=== PATIENT | male | born 1960 | race Caucasian/White ===

== ENCOUNTER → 2016-06-02 | Outpatient (CLI) | payer OTHER ==
--- NOTE | 2016-06-02 10:27 | XR ---
EXAMINATION TYPE: XR chest 2V DATE OF EXAM: 06/02/2016 10:14 AM COMPARISON: Prior x-ray September 18, 2015 HISTORY: Presurgical study. TECHNIQUE: Frontal and lateral views of the chest are obtained. FINDINGS: There is no focal air space opacity, pleural effusion, or pneumothorax seen. The cardiac silhouette size is within normal limits. Some ectasia or prominence of the aortic knob is stable. Brandy gical change in cervical spine with metallic disc spacer is noted new from prior. IMPRESSION: No acute cardiopulmonary process.
== END | disposition home or self-care (01) ==
LOC: RADXRMAIN 09:58
PROVIDERS: ATTEND Family Medicine
DX: Z01.818 Encounter for other preprocedural examination (principal)
CPT/HCPCS: 71020; 87070

== ENCOUNTER → 2016-06-11 | Outpatient (CLI) | payer OTHER ==
[2016-06-11 13:28] LABS: Basophils # (A) 0.1 k/uL (0-0.2); Basophils % (A) 1 %; CH 31.9; CHCM 33.3; Eosinophils # (A) 0.4 k/uL (0-0.7); Eosinophils % (A) 4 %; HCT 45.6 % (39.0-53.0); HDW 2.37; Luc # (Auto) 0.37; Luc % (Auto) 4; Lymphocytes # (A) 2.6 k/uL (1.0-4.8); Lymphocytes % (A) 25 %; MCH 31.7 pg (25.0-35.0); MCHC 32.9 g/dL (31.0-37.0); MCV 96.1 fL (80.0-100.0); Mean Platelet Volume 7.9; Monocytes # (A) 0.7 k/uL (0-1.0); Monocytes % (A) 7 %; Neutrophils # (A) 6.1 k/uL (1.3-7.7); Neutrophils % (A) 60 %; RBC 4.74 m/uL (4.30-5.90); RDW 13.2 % (11.5-15.5); WBC 10.3 k/uL (3.8-10.6); WBC (Perox) 10.84
== END | disposition home or self-care (01) ==
LOC: LABWHC1 12:55
PROVIDERS: ATTEND Surgery
DX: N39.0 Urinary tract infection, site not specified (principal)
CPT/HCPCS: 36415; 85025

== ENCOUNTER 2016-06-17 21:19 | Emergency (ER) | payer OTHER ==
[2016-06-17 21:43] VITALS: BP 128/77; PULSE 106; RESP 18; TEMP 99.3
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
== END 2016-06-17 22:32 | disposition home or self-care (01) ==
LOC: EC 21:19
DX: Z46.6 Encounter for fitting and adjustment of urinary device (principal); I10 Essential (primary) hypertension; E78.5 Hyperlipidemia, unspecified; E11.9 Type 2 diabetes mellitus without complications; F17.200 Nicotine dependence, unspecified, uncomplicated; Z79.899 Other long term (current) drug therapy; Z91.048 Other nonmedicinal substance allergy status; Z98.890 Other specified postprocedural states; Z79.84 Long term (current) use of oral hypoglycemic drugs; Z79.82 Long term (current) use of aspirin; Z88.8 Allergy status to other drugs, medicaments and biological substances; Z86.14 Personal history of Methicillin resistant Staphylococcus aureus infection
CPT/HCPCS: 99283

== ENCOUNTER 2016-09-01 05:53 | Inpatient (IN) | payer OTHER ==
[2016-09-01] MEDS ORDERED: SODIUM CHLORIDE 0.9% 500 ML IV STA ×2 (06:14→07:36)
[2016-09-01 06:40] LABS: Basophils # (A) 0.1 k/uL (0-0.2); Basophils % (A) 0 %; CH 32.2; CHCM 34.7; Eosinophils # (A) 0.5 k/uL (0-0.7); Eosinophils % (A) 3 %; HDW 2.42; HGB 13.5 gm/dL (13.0-17.5); Luc # (Auto) 0.31; Luc % (Auto) 2; Lymphocytes # (A) 1.7 k/uL (1.0-4.8); Lymphocytes % (A) 9 %; MCH 32.4 pg (25.0-35.0); MCHC 34.7 g/dL (31.0-37.0); MCV 93.2 fL (80.0-100.0); Mean Platelet Volume 6.9; Monocytes # (A) 0.8 k/uL (0-1.0); Monocytes % (A) 4 %; Neutrophils # (A) 15.5 k/uL (1.3-7.7); Neutrophils % (A) 82 %; RBC 4.18 m/uL (4.30-5.90); RDW 13.4 % (11.5-15.5); WBC 18.9 k/uL (3.8-10.6); WBC (Perox) 20.16
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
[2016-09-01 06:58] LABS: Anion Gap 11 mmol/L; Blood Urea Nitrogen 19 mg/dL (9-20); Calcium 9.1 mg/dL (8.4-10.2); Carbon Dioxide 20 mmol/L (22-30); Chloride 106 mmol/L (98-107); Glucose 195 mg/dL (74-99); Non-African American GFR(MDRD) >60 (>60 ml/min/1.73 sqM); Potassium 4.3 mmol/L (3.5-5.1); Sodium 137 mmol/L (137-145)
[2016-09-01] MEDS ORDERED: RX INFO: IV CONTRAST WAS GIVEN 1 EACH MISC MISCELLANE PRN (07:35)
--- NOTE | 2016-09-01 08:36 | CT ---
EXAMINATION TYPE: CT pelvis w con DATE OF EXAM: 09/01/2016 COMPARISON: NONE HISTORY: Rt sided gluteal abscess CT DLP: 1392.1 mGycm Automated exposure control for dose reduction was used. CONTRAST: Performed with IV Contrast, patient injected with 100 mL of Omnipaque 300. FINDINGS: Hypodensity within the right lobe the liver too small to characterize. Nonobstructing 3 mm right valarie l calculus. Extensive previous surgery involving the spinal column which results in artifact and dist ortion. Diverticulosis seen with no free fluid. Atherosclerotic change aorta. There is extensive edema in the region of the perineum. Soft tissue edema may been the basis of a ann lulitis. The perianal region there is a 1 cm area of ill-defined attenuation which could represent a small phlegmon. IMPRESSION: SOFT TISSUE EDEMA IN THE GLUTEAL REGION GREATER ON THE RIGHT AND WITHIN THE PERINEUM SUGGESTIVE OF A CELLULITIS. NO SIZABLE RIM-ENHANCING ABSCESS. HOWEVER, IN THE PERIANAL REGION ON THE RIGHT THERE IS A 1 CM AREA OF DIMINISHED ATTENUATION WHICH IS POORLY DEFINED WHICH MAY REPRESENT A SMALL PHLEGMON OR DEVELOPING TINY ABSCESS. NONOBSTRUCTING RIGHT RENAL CALCULUS MEASURING 4 MM..
[2016-09-01] MEDS ORDERED: NALOXONE 0.4 MG/ML 1 ML VIAL IV PRN (09:55)
[2016-09-01] MEDS ORDERED: IV VANCOMYCIN PER PHARMACY 1 EACH MISC MISCELLANE PRN (09:56)
[2016-09-01] MEDS: VANCOMYCIN 1,750 MG in SODIUM CHLORIDE 0.9% 250 ML IVPB STA ×2 (11:25→11:26)
[2016-09-01] MEDS: SODIUM CHLORIDE 0.9% 1,000 ML IV SCH ×2 (11:26→18:20)
[2016-09-01 11:42] VITALS: BMI 33.5
[2016-09-01] MEDS: AMPICILLIN-SULBACTAM 3 GM in SODIUM CHLORIDE 0.9% 100 ML IVPB SCH ×3 (14:32→23:21)
[2016-09-01] MEDS: LISINOPRIL 20 MG TAB PO SCH (16:36)
[2016-09-01] MEDS: LINAGLIPTIN 5 MG TABLET PO SCH (16:36)
[2016-09-01] MEDS: TAMSULOSIN 0.4 MG CAP.ER.24H PO SCH (16:37)
[2016-09-01] MEDS: PIOGLITAZONE 15 MG TAB PO SCH (16:37)
[2016-09-01] MEDS: MORPHINE SULFATE 4 MG/ML SYRINGE IV PRN (16:43)
[2016-09-01 17:20] LABS: Glucose,Whole Blood 148 mg/dL (75-99)
[2016-09-01] MEDS: HYDROcodone/APAP 7.5-325MG 1 EACH TAB PO PRN (20:23)
[2016-09-01] MEDS: ATORVASTATIN 20 MG TAB PO SCH (20:24)
[2016-09-01] MEDS: NAPROXEN 250 MG TAB PO SCH (20:24)
[2016-09-01] MEDS: metFORMIN 500 MG TAB PO SCH (20:25)
[2016-09-01] MEDS: VANCOMYCIN 1,750 MG in SODIUM CHLORIDE 0.9% 250 ML IVPB SCH (20:25)
[2016-09-01] MEDS: CYCLOBENZAPRINE 10 MG TAB PO SCH (20:25)
[2016-09-01] MEDS: glipiZIDE 10 MG TAB PO SCH (20:25)
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
[2016-09-01 20:54] LABS: Glucose,Whole Blood 137 mg/dL (75-99)
[2016-09-01] MEDS ORDERED: ACETAMINOPHEN TAB 325 MG TAB PO PRN (21:50)
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
[2016-09-02] MEDS: AMPICILLIN-SULBACTAM 3 GM in SODIUM CHLORIDE 0.9% 100 ML IVPB SCH ×3 (05:48→18:41)
[2016-09-02 07:44] LABS: Glucose,Whole Blood 108 mg/dL (75-99)
[2016-09-02 07:47] LABS: Basophils # (A) 0.1 k/uL (0-0.2); Basophils % (A) 1 %; CH 31.6; CHCM 33.1; Eosinophils # (A) 0.3 k/uL (0-0.7); Eosinophils % (A) 2 %; HCT 35.3 % (39.0-53.0); HDW 2.34; HGB 11.8 gm/dL (13.0-17.5); Luc # (Auto) 0.35; Luc % (Auto) 2; Lymphocytes # (A) 1.2 k/uL (1.0-4.8); Lymphocytes % (A) 7 %; MCH 32.2 pg (25.0-35.0); MCHC 33.5 g/dL (31.0-37.0); MCV 96.1 fL (80.0-100.0); Mean Platelet Volume 7.1; Monocytes # (A) 1.2 k/uL (0-1.0); Monocytes % (A) 7 %; Neutrophils # (A) 14.2 k/uL (1.3-7.7); Neutrophils % (A) 82 %; RBC 3.67 m/uL (4.30-5.90); RDW 13.7 % (11.5-15.5); WBC 17.3 k/uL (3.8-10.6); WBC (Perox) 17.51
[2016-09-02 08:07] LABS: Anion Gap 9 mmol/L; Blood Urea Nitrogen 13 mg/dL (9-20); Calcium 8.3 mg/dL (8.4-10.2); Carbon Dioxide 18 mmol/L (22-30); Chloride 111 mmol/L (98-107); Glucose 109 mg/dL (74-99); Non-African American GFR(MDRD) >60 (>60 ml/min/1.73 sqM); Potassium 4.4 mmol/L (3.5-5.1); Sodium 138 mmol/L (137-145)
[2016-09-02] MEDS: SODIUM CHLORIDE 0.9% 1,000 ML IV SCH ×3 (08:43→18:41)
[2016-09-02] MEDS: NAPROXEN 250 MG TAB PO SCH ×2 (10:13→21:08)
[2016-09-02] MEDS: VANCOMYCIN 1,750 MG in SODIUM CHLORIDE 0.9% 250 ML IVPB SCH ×2 (10:16→16:36)
--- NOTE | 2016-09-02 10:44 | P.HPADDEND ---
H&P Addendum H&P Addendum Date: 09/02/16 Patient presented with sepsis including fevers this morning secondary to cellulitis with buttock abscess. Recommend immediate drainage
[2016-09-02] MEDS ORDERED: PROPOFOL 10 MG/ML 20 ML VIAL IV ONE (12:02)
[2016-09-02] MEDS ORDERED: MORPHINE SULFATE 10 MG/ML SYRINGE ONE (12:02)
[2016-09-02] MEDS ORDERED: fentaNYL (PF) 50 MCG/ML 2 ML AMP ONE (12:02)
[2016-09-02] MEDS ORDERED: KETAMINE 10 MG/ML 20 ML VIAL ONE (12:02)
[2016-09-02] MEDS ORDERED: IV FLUID CONTINUATION 700 ML IV ONE (12:02)
[2016-09-02] MEDS ORDERED: LIDOCAINE 1% INJ 10MG/ML (20 ML MDV) ONE (12:02)
[2016-09-02] MEDS ORDERED: SUCCINYLCHOLINE CHLORIDE VIAL 200 MG/10 ML VIAL IV ONE (12:02)
[2016-09-02] MEDS ORDERED: MIDAZOLAM 2 MG/2 ML VIAL ONE (12:02)
[2016-09-02] MEDS ORDERED: HYDROmorphone (PF) 1 MG/ML ONE (12:02)
[2016-09-02] MEDS ORDERED: BUPIVACAIN-EPI 0.25%-1:200,000 30 ML VIAL SQ ONE (12:26)
--- NOTE | 2016-09-02 12:56 | P.PCN ---
Date of Procedure: 09/02/16 Preoperative Diagnosis: Sepsis due to complicated right buttock abscess, right buttock cellulitis, history of diabetes, morbid obesity Postoperative Diagnosis: Same, complicated right buttock/perineal abscess 10 x 5 cm the subcutaneous tissue Procedure(s) Performed: Excision of benign lesion 2 x 0.5 cm right buttock, drainage of complex deep subcutaneous tissue abscess of the right buttock/perineum 10 x 5 cm over 60 mL of pus drained Implants: Anesthesia: GETA, local (30 mL, percent Marcaine with epinephrine) Surgeon: Katie Kimbrough Estimated Blood Loss (ml): 10 Pathology: other (Anaerobic and aerobic culture of right buttock abscess, cellulitis lesion) Condition: stable Disposition: floor Indications for Procedure: Operative Findings: Over 60 mL of high pressure infected hematoma creating a 10 x 5 cm pocket extending along the medial right gluteal region/perineum. Description of Procedure:
[2016-09-02 13:02] LABS: Glucose,Whole Blood 127 mg/dL (75-99)
[2016-09-02] MEDS ORDERED: ACETAMINOPHEN IV (For NPO) 1,000 MG in EMPTY BAG 1 BAG IVPB ONE (13:30)
[2016-09-02] MEDS: PIOGLITAZONE 15 MG TAB PO SCH (14:08)
[2016-09-02] MEDS: TAMSULOSIN 0.4 MG CAP.ER.24H PO SCH (14:08)
[2016-09-02] MEDS: metFORMIN 500 MG TAB PO SCH ×2 (14:08→21:08)
[2016-09-02] MEDS: glipiZIDE 10 MG TAB PO SCH ×2 (14:08→21:08)
[2016-09-02] MEDS: LINAGLIPTIN 5 MG TABLET PO SCH (14:09)
[2016-09-02] MEDS: LISINOPRIL 20 MG TAB PO SCH (14:09)
[2016-09-02] MEDS: HEPARIN SODIUM,PORCINE 5,000 UNIT/ML 1 ML VIAL SQ SCH (16:36)
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
[2016-09-02 17:29] LABS: Glucose,Whole Blood 86 mg/dL (75-99)
[2016-09-02 17:29] LABS: Glucose,Whole Blood 61 mg/dL (75-99)
--- NOTE | 2016-09-02 19:13 | P.PN ---
Subjective Principal diagnosis: Sepsis due to right buttock cellulitis and abscess. The patient is a 56-year-old gentleman who is now status post drainage of a complex right buttock including perineal abscess. Over 50+ cc of infected malodorous purulence was evacuated. He is now bedside with his . He reports moderate improvement of his symptoms. His buttock pain is moderately improved. Infectious disease consultation is pending. Objective - Vital Signs Vital signs: Vital Signs Temp 97.1 F L 09/02/16 15:00 Pulse 94 09/02/16 15:29 Resp 18 09/02/16 15:29 BP 105/66 09/02/16 15:00 Pulse Ox 93 L 09/02/16 15:00 Intake & Output 09/01/16 09/02/16 09/02/16 18:59 06:59 18:59 Intake Total 200 1248 300 Output Total 20 Balance 200 1248 280 Weight 109 kg Intake: IV 1008 300 Sodium Chloride 0.9% 1, 1008 000 ml @ 126 mls/hr IV . Q7H57M [facility] Rx#:[id number] Oral 200 240 0 Output: Estimated Blood Loss 20 Other: # Voids 3 2 4 # Bowel Movements 2 - Exam GENERAL: Well developed and in no acute distress. Pleasant. HEENT: No sclera icterus. Extraocular movements grossly intact. Moist buccal mucosa. Head is atraumatic, normocephalic. Hears conversational speech. No nasal drainage. CHEST: Non-labored respirations and equal bilateral excursions. CARDIOVASCULAR: Tachycardic. Palpable 2+ radial pulses. ABDOMEN: Soft, nontender. Nondistended. MUSCULOSKELETAL: No clubbing, cyanosis or edema. NEUROLOGIC: No focal or lateralizing signs. SKIN: Dressing along right buttock intact. - Labs CBC & Chem 7: 09/02/16 07:15 09/02/16 07:15 Labs: Abnormal Lab Results - Last 24 Hours (Table) 09/01/16 09/01/16 09/02/16 Range/Units 17:19 20:53 07:15 WBC 17.3 H (3.8-10.6) k/uL RBC 3.67 L (4.30-5.90) m/uL Hgb 11.8 L (13.0-17.5) gm/dL Hct 35.3 L (39.0-53.0) % Neutrophils # 14.2 H (1.3-7.7) k/uL Monocytes # 1.2 H (0-1.0) k/uL Chloride (98-107) mmol/L Carbon Dioxide (22-30) mmol/L Glucose (74-99) mg/dL POC Glucose (mg/dL) 148 H 137 H (75-99) mg/dL Calcium (8.4-10.2) mg/dL 09/02/16 09/02/16 09/02/16 Range/Units 07:15 07:38 13:00 WBC (3.8-10.6) k/uL RBC (4.30-5.90) m/uL Hgb (13.0-17.5) gm/dL Hct (39.0-53.0) % Neutrophils # (1.3-7.7) k/uL Monocytes # (0-1.0) k/uL Chloride 111 H (98-107) mmol/L Carbon Dioxide 18 L (22-30) mmol/L Glucose 109 H (74-99) mg/dL POC Glucose (mg/dL) 108 H 127 H (75-99) mg/dL Calcium 8.3 L (8.4-10.2) mg/dL Microbiology - Last 24 Hours (Table) 09/01/16 06:27 Blood Culture - Preliminary Blood No Growth after 24 hours Assessment and Plan (1) Diabetes type 2, uncontrolled Status: Acute (2) Leukocytosis Status: Acute (3) History of MRSA infection Status: Acute (4) Perianal pain Status: Acute (5) Cellulitis, gluteal Status: Acute Plan: 1. Change dressings daily with iodoform packing. 2. Agree with infectious disease consultation. 3. Monitor close for history of sepsis. 4. Recommend referral to wound care center.
[2016-09-02 20:59] LABS: Glucose,Whole Blood 107 mg/dL (75-99)
[2016-09-02 21:04] LABS: Hemoglobin A1C 7.1 % (4.2-6.1)
[2016-09-02] MEDS: CYCLOBENZAPRINE 10 MG TAB PO SCH (21:08)
[2016-09-02] MEDS: ATORVASTATIN 20 MG TAB PO SCH (21:08)
[2016-09-02] MEDS: MORPHINE SULFATE 4 MG/ML SYRINGE IV PRN (21:09)
--- NOTE | 2016-09-02 22:04 | P.PN ---
Progress Note - Text DATE OF SERVICE: 09/02/2016 PRESENTING COMPLAINT: perianal pain INTERVAL HISTORY: This 56-year-old gentleman who presented with right perianal abscess. Patient is status post incision and drainage of the abscess 50 mL of purulence was retrieved. Lying in bed appears comfortable since procedure, states he can actually lie on his back now. Ambulatory in the room, was tolerating his diet prior to procedure. REVIEW OF SYSTEMS: Done for constitutional ,cardiovascular, GI, pulmonary with relevant findings as above. CURRENT MEDICATIONS Unasyn IV, [place], Lipitor, Flexeril, vancomycin IV, Flomax. PHYSICAL EXAM VITAL SIGNS: Temperature 98.4, pulse 97, respiratory rate 20, blood pressure 116/63, oxygen saturation 97% on room air GENERAL APPEARANCE: . Lying in bed, not in distress. EYES: Pupils equal. Conjunctiva normal. NECK: JVD not raised. Mass not palpable. RESPIRATORY: Respiratory effort normal. Lungs clear to auscultation. CARDIOVASCULAR: First and second sounds normal. No edema. ABDOMEN: Soft. Liver and spleen not palpable. No tenderness. No mass palpable. PSYCHIATRY: Alert and oriented x3. Mood and affect normal. INTEGUMENT: Right perianal area with dressing in place no drainage noted INVESTIGATIONS: White blood cell count 17.3, hemoglobin 11.8, Accu-Cheks noted. Buttock wound culture pending ASSESSMENT: Acute perianal abscess with surrounding cellulitis, failed outpatient treatment , status post incision and drainage, improving Obesity body mass index of 33.5. Type 2 diabetes mellitus on oral hypoglycemics. Hyperlipidemia. Essential Hypertension PLAN: Continue with current antibiotic treatment, await culture results, dressing changes per surgical services, possible discharge in 1-2 days. CAB STARTER statement: Patient was seen and examined by nurse practitioner Roma Lorenzana and all elements of the case discussed with attending Dr. King
[2016-09-02] MEDS: INSULIN LISPRO (humaLOG) 300 UNIT/3 ML VIAL SQ SCH (22:14)
[2016-09-03] MEDS: VANCOMYCIN 1,750 MG in SODIUM CHLORIDE 0.9% 250 ML IVPB SCH ×3 (00:19→16:34)
[2016-09-03] MEDS: HEPARIN SODIUM,PORCINE 5,000 UNIT/ML 1 ML VIAL SQ SCH ×5 (00:20→22:53)
[2016-09-03 02:05] LABS: Glucose,Whole Blood 120 mg/dL (75-99)
[2016-09-03] MEDS: AMPICILLIN-SULBACTAM 3 GM in SODIUM CHLORIDE 0.9% 100 ML IVPB SCH ×5 (02:32→22:53)
[2016-09-03] MEDS ORDERED: VANCOMYCIN TROUGH DUE 1 EACH MISC MISCELLANE ONE (07:00)
[2016-09-03 07:03] LABS: Glucose,Whole Blood 85 mg/dL (75-99)
[2016-09-03 07:35] VITALS: RESP 16
[2016-09-03] MEDS: INSULIN LISPRO (humaLOG) 300 UNIT/3 ML VIAL SQ SCH ×4 (07:46→20:46)
[2016-09-03] MEDS: glipiZIDE 10 MG TAB PO SCH ×2 (07:52→20:06)
[2016-09-03] MEDS: NAPROXEN 250 MG TAB PO SCH ×2 (07:53→20:05)
[2016-09-03] MEDS: LINAGLIPTIN 5 MG TABLET PO SCH (07:53)
[2016-09-03] MEDS: metFORMIN 500 MG TAB PO SCH ×2 (07:53→20:06)
[2016-09-03] MEDS: LISINOPRIL 20 MG TAB PO SCH (07:53)
[2016-09-03] MEDS: PIOGLITAZONE 15 MG TAB PO SCH (07:54)
[2016-09-03] MEDS: TAMSULOSIN 0.4 MG CAP.ER.24H PO SCH (07:54)
[2016-09-03] MEDS: MULTIVITAMINS, THERA 1 EACH TAB PO SCH (07:55)
--- NOTE | 2016-09-03 08:25 | PN ---
DATE OF SERVICE: 09/02/2016 ATTENDING NOTE: This patient was seen and examined by me earlier today. I reviewed the note of my nurse practitioner, Ms. Lorenzana. Reviewed and discussed additional findings below. Patient has a right perineal abscess, status post I&D about 50 mL drained. The patient feeling much relieved since then. Lying in bed, tired -appearing. On examination T-max was 101.1 last night, now afebrile. Blood pressure 105/66. RESPIRATORY: Effort normal. LUNGS: Clear. CARDIOVASCULAR: First and second sounds normal. Dressing in the buttock area. INVESTIGATIONS: Accu-Cheks are noted. White count 7.3, potassium 4.4. ASSESSMENT: 1. Acute perianal abscess and surrounding cellulitis, status post incision and drainage. 2. Type 2 diabetes mellitus. 3. Hyperlipidemia. 4. Hypoglycemia from poor oral intake and patient being n.p.o. for surgery. PLAN: Continue with IV vancomycin and Unasyn. Care was discussed with the patient. Hopefully sugars will come up after the patient eats. Care was discussed with the patient.
[2016-09-03] MEDS: SODIUM CHLORIDE 0.9% 1,000 ML IV SCH ×2 (09:09→16:33)
--- NOTE | 2016-09-03 10:11 | P.PN ---
Subjective 56-year-old male being seen and examined. Patient stated he passed gas and had a moderate amount of stool incontinence. Patient states when I need to have a bowel movement after the surgery it just comes out. Patients packing iodoform from the right buttocks stool noted on the packing. The packing was removed from the right buttocks the area cleaned and repacked the Patient is postop on September 02 right buttock perineal abscess incision and drainage with iodoform packing in place for sepsis due to a complicated right buttock abscess right buttock cellulitis in a patient who has a history of diabetes and obesity Objective - Vital Signs Vital signs: Vital Signs Temp 96.8 F L 09/03/16 07:00 Pulse 81 09/03/16 07:00 Resp 16 09/03/16 07:00 BP 102/73 09/03/16 07:00 Pulse Ox 97 09/03/16 07:00 Intake & Output 09/02/16 09/03/16 09/03/16 18:59 06:59 18:59 Intake Total 300 300 Output Total 20 2 Balance 280 298 Intake: IV 300 Intake, IV Titration 300 Amount Sodium Chloride 0.9% 1, 300 000 ml @ 50 mls/hr IV . Q20H [facility] Rx#:[id number] Oral 0 Output: Urine 2 Estimated Blood Loss 20 Other: Voiding Method Toilet # Voids 4 1 # Bowel Movements 2 - Exam Physical exam 56-year-old male seen and examined pleasant cooperative oriented 3 Lungs essentially clear adequate air movement on room air Heart S1-S2 audible and regular Abdomen soft nontender reports no nausea vomiting no difficulty in urinating passing gas incontinent small brown stool Peritoneal area right buttock incision and drainage area no odor noted packing removed Extremities no edema noted - Labs CBC & Chem 7: 09/02/16 07:15 09/02/16 07:15 Labs: Abnormal Lab Results - Last 24 Hours (Table) 09/02/16 09/02/16 09/02/16 Range/Units 07:15 13:00 17:10 POC Glucose (mg/dL) 127 H 61 L (75-99) mg/dL Hemoglobin A1c 7.1 H (4.2-6.1) % 09/02/16 09/03/16 Range/Units 20:48 02:02 POC Glucose (mg/dL) 107 H 120 H (75-99) mg/dL Hemoglobin A1c (4.2-6.1) % Microbiology - Last 24 Hours (Table) 09/01/16 06:27 Blood Culture - Preliminary Blood No Growth after 48 hours 09/02/16 12:45 Gram Stain - Preliminary Buttock Wound Culture - Preliminary 09/02/16 12:45 Anaerobic Culture - Preliminary Buttock Assessment and Plan Plan: Impression Present on admission febrile with leukocytosis sepsis due to complicated right buttock abscess right buttock cellulitis Status post September 02 incision and drainage of a complex deep subcutaneous tissue abscess of the right buttocks and perineum with 60 mL of pus drained Type 2 diabetes Hyperlipidemia Obesity BMI 33 Plan Wound care as ordered iodoform packing right buttock followed by 4 x 4 and ABD daily IV antibiotics Unasyn as ordered Monitor blood sugars address as indicated Pain control Shower daily Further recommendations pending Repeat labs in the morning DVT and GI prophylaxis The above dictated assessment and findings were discussed with DR KIMBROUGH Impression and the plan of care have been dictated as directed. Lyric Love nurse practitioner acting as a scribe for Dr. Kimbrough
[2016-09-03 11:23] LABS: Glucose,Whole Blood 119 mg/dL (75-99)
[2016-09-03] MEDS: CHOLESTYRAMINE (WITH SUGAR) 4 GM PACKET PO SCH (16:32)
[2016-09-03 16:48] LABS: Glucose,Whole Blood 95 mg/dL (75-99)
[2016-09-03] MEDS: ATORVASTATIN 20 MG TAB PO SCH (20:05)
[2016-09-03] MEDS: CYCLOBENZAPRINE 10 MG TAB PO SCH (20:06)
[2016-09-03 20:38] LABS: Glucose,Whole Blood 110 mg/dL (75-99)
--- NOTE | 2016-09-03 20:54 | P.PN ---
Progress Note - Text DATE OF SERVICE: 09/03/2016 PRESENTING COMPLAINT: perianal pain INTERVAL HISTORY: This 56-year-old gentleman who presented with right perianal abscess. Patient is status post incision and drainage of the abscess 50 mL of purulence was retrieved. Lying in bed appears comfortable,. Ambulatory in the room, was tolerating his diet. Openly refusing DVT prophylaxis of Lovenox, and insulin coverage. Patient stated "I don't take that stuff right take it right out of here". Wound care managed by surgical services. REVIEW OF SYSTEMS: Done for constitutional ,cardiovascular, GI, pulmonary with relevant findings as above. CURRENT MEDICATIONS Unasyn IV, [place], Lipitor, Flexeril, , vancomycin, Flomax. PHYSICAL EXAM VITAL SIGNS: Temperature 96.8, pulse 81, blood pressure 102/73, respiratory rate 16, oxygen saturation 97% on room air. GENERAL APPEARANCE: . Lying in bed, not in distress. EYES: Pupils equal. Conjunctiva normal. NECK: JVD not raised. Mass not palpable. RESPIRATORY: Respiratory effort normal. Lungs clear to auscultation. CARDIOVASCULAR: First and second sounds normal. No edema. ABDOMEN: Soft. Liver and spleen not palpable. No tenderness. No mass palpable. PSYCHIATRY: Alert and oriented x3. Mood and affect normal. INTEGUMENT: Right perianal area with dressing in place no drainage noted INVESTIGATIONS: Accu-Cheks noted. Buttock wound culture pending ASSESSMENT: Acute perianal abscess with surrounding cellulitis, failed outpatient treatment , status post incision and drainage, improving Obesity body mass index of 33.5. Type 2 diabetes mellitus on oral hypoglycemics. Hyperlipidemia. Essential Hypertension Hypoglycemia from poor oral intake and patient be nothing by mouth for surgery, resolved PLAN: Continue with current antibiotic treatment for infectious disease await culture results, dressing changes per surgical services, possible discharge in 1-2 days. CERTIFIED PROSTHETIST/ORTHOTIST statement: Patient was seen and examined by nurse practitioner Roma Lorenzana and all elements of the case discussed with attending Dr. King
[2016-09-03] MEDS: MORPHINE SULFATE 4 MG/ML SYRINGE IV PRN (22:50)
[2016-09-04] MEDS: VANCOMYCIN 1,750 MG in SODIUM CHLORIDE 0.9% 250 ML IVPB SCH ×3 (00:46→14:57)
[2016-09-04] MEDS: HYDROcodone/APAP 7.5-325MG 1 EACH TAB PO PRN ×3 (04:06→20:59)
[2016-09-04] MEDS: AMPICILLIN-SULBACTAM 3 GM in SODIUM CHLORIDE 0.9% 100 ML IVPB SCH ×3 (05:46→17:52)
[2016-09-04 07:13] LABS: Glucose,Whole Blood 93 mg/dL (75-99)
[2016-09-04] MEDS: LISINOPRIL 20 MG TAB PO SCH (07:20)
[2016-09-04] MEDS: metFORMIN 500 MG TAB PO SCH ×2 (07:20→20:50)
[2016-09-04] MEDS: glipiZIDE 10 MG TAB PO SCH ×2 (07:20→20:49)
[2016-09-04] MEDS: PIOGLITAZONE 15 MG TAB PO SCH (07:20)
[2016-09-04] MEDS: LINAGLIPTIN 5 MG TABLET PO SCH (07:20)
[2016-09-04] MEDS: TAMSULOSIN 0.4 MG CAP.ER.24H PO SCH (07:20)
[2016-09-04] MEDS: NAPROXEN 250 MG TAB PO SCH ×2 (07:20→20:50)
[2016-09-04] MEDS: INSULIN LISPRO (humaLOG) 300 UNIT/3 ML VIAL SQ SCH ×4 (07:31→20:45)
--- NOTE | 2016-09-04 07:53 | P.PN ---
Progress Note - Text Patient seen and evaluated. He reports moderate improvement of his buttock pain including blood sugars. Superficial dressing was discontinued per patient request. Overall he is pleased with the level of care. Antibiotic management per primary team and infectious disease. Recommend home health care evaluation and possible referral to wound care center.
[2016-09-04 08:10] LABS: Basophils # (A) 0.1 k/uL (0-0.2); Basophils % (A) 1 %; CH 31.7; CHCM 32.7; Eosinophils # (A) 0.5 k/uL (0-0.7); Eosinophils % (A) 6 %; HCT 34.1 % (39.0-53.0); HDW 2.43; HGB 11.3 gm/dL (13.0-17.5); Luc # (Auto) 0.31; Luc % (Auto) 4; Lymphocytes # (A) 1.8 k/uL (1.0-4.8); Lymphocytes % (A) 21 %; MCH 32.3 pg (25.0-35.0); MCHC 33.2 g/dL (31.0-37.0); MCV 97.4 fL (80.0-100.0); Mean Platelet Volume 7.4; Monocytes # (A) 0.7 k/uL (0-1.0); Monocytes % (A) 8 %; Neutrophils # (A) 5.4 k/uL (1.3-7.7); Neutrophils % (A) 61 %; RDW 13.5 % (11.5-15.5); WBC 8.8 k/uL (3.8-10.6); WBC (Perox) 9.07
[2016-09-04 08:25] LABS: Anion Gap 10 mmol/L; Blood Urea Nitrogen 13 mg/dL (9-20); Calcium 8.6 mg/dL (8.4-10.2); Carbon Dioxide 20 mmol/L (22-30); Chloride 112 mmol/L (98-107); Glucose 82 mg/dL (74-99); Non-African American GFR(MDRD) >60 (>60 ml/min/1.73 sqM); Potassium 4.4 mmol/L (3.5-5.1); Sodium 142 mmol/L (137-145)
--- NOTE | 2016-09-04 10:49 | PN ---
DATE OF SERVICE: 09/03/2016 ATTENDING NOTE: This patient was seen and examined by me on 09/03/2016. Patient is status post I&D of her right perianal abscess. Patient is more comfortable. Up in the room. Tolerating his diet. Patient does not want DVT prophylaxis. and also refused to take insulin coverage. I did explain to him why this is important. On examination, afebrile, pulse 107, blood pressure 105/66. RESPIRATORY: Effort normal. LUNGS: Decreased breath sounds. ABDOMEN: Soft, nontender. Dressing over the operative site. INVESTIGATIONS: Accu-Cheks monitored. Cultures are pending. ASSESSMENT: 1. Right perineal abscess with surrounding cellulitis, status post I&D having failed outpatient treatment. 2. Hyperglycemia, corrected. Continue with antibiotics. Follow with my colleagues. Discharge planning to be initiated.
--- NOTE | 2016-09-04 11:20 | P.PN ---
Subjective 56-year-old being seen and examined. Patient states is less pain in the right buttocks. Patient states his stools are forming less loose. Patient's hemoglobin A1c is 7.1 blood sugar this morning 93 Patient is postop September 02 ight buttock perineal abscess incision and drainage with iodoform packing in place for sepsis due to a complicated right buttock abscess right buttock cellulitis in a patient who has a history of diabetes and obesity Objective - Vital Signs Vital signs: Vital Signs Temp 97.2 F L 09/04/16 07:00 Pulse 69 09/04/16 07:47 Resp 16 09/04/16 07:47 BP 111/70 09/04/16 07:00 Pulse Ox 96 09/04/16 07:00 Intake & Output 09/03/16 09/04/16 09/04/16 18:59 06:59 18:59 Intake Total 1100 440 Output Total 1 Balance 1100 440 -1 Intake: Intake, IV Titration 650 200 Amount Ampicillin-Sulbactam 3 gm 100 In Sodium Chloride 0.9% 100 ml @ 100 mls/hr IVPB Q6HR JS Rx#:[id number] Sodium Chloride 0.9% 1, 300 200 000 ml @ 50 mls/hr IV . Q20H JS Rx#:[id number] Vancomycin 1,750 mg In 250 Sodium Chloride 0.9% 250 ml @ 125 mls/hr IVPB Q8HR JS Rx#:[id number] Oral 450 240 Output: Urine 1 Other: Voiding Method Toilet Toilet Toilet # Voids 3 2 1 # Bowel Movements 4 - Exam Physical exam 56-year-old male seen and examined pleasant cooperative oriented 3 sitting up in bed patient states I am not interested in starting insulin would like to keep my oral pills Lungs essentially clear adequate air movement on room air Heart S1-S2 audible and regular denying chest pain Abdomen soft nontender reports no nausea vomiting no difficulty in urinating states less loose stools this morning Peritoneal area right buttock incision and drainage area no odor noted packing removed Extremities no edema noted - Labs CBC & Chem 7: 09/04/16 07:05 09/04/16 07:05 Labs: Abnormal Lab Results - Last 24 Hours (Table) 09/03/16 09/03/16 09/04/16 Range/Units 11:21 20:36 07:05 RBC 3.50 L (4.30-5.90) m/uL Hgb 11.3 L (13.0-17.5) gm/dL Hct 34.1 L (39.0-53.0) % Chloride (98-107) mmol/L Carbon Dioxide (22-30) mmol/L POC Glucose (mg/dL) 119 H 110 H (75-99) mg/dL 09/04/16 Range/Units 07:05 RBC (4.30-5.90) m/uL Hgb (13.0-17.5) gm/dL Hct (39.0-53.0) % Chloride 112 H (98-107) mmol/L Carbon Dioxide 20 L (22-30) mmol/L POC Glucose (mg/dL) (75-99) mg/dL Microbiology - Last 24 Hours (Table) 09/01/16 06:27 Blood Culture - Preliminary Blood No Growth after 72 hours 09/02/16 12:45 Gram Stain - Preliminary Buttock Wound Culture - Preliminary Assessment and Plan Plan: Impression Present on admission febrile with leukocytosis sepsis due to complicated right buttock abscess right buttock cellulitis Status post September 02 incision and drainage of a complex deep subcutaneous tissue abscess of the right buttocks and perineum with 60 mL of pus drained Type 2 diabetes Hyperlipidemia Obesity BMI 33 Plan Wound care as ordered iodoform packing right buttock followed by 4 x 4 and ABD daily IV antibiotics Unasyn as ordered per infectious disease Monitor blood sugars address as indicated Pain control Shower daily Further recommendations pending Repeat labs in the morning DVT and GI prophylaxis Follow-up on the wound cultures Patient will follow-up in the outpatient setting at the [facility] wound care [place] with Dr. hampton The above dictated assessment and findings were discussed with DR KIMBROUGH Impression and the plan of care have been dictated as directed. Lyric Love nurse practitioner acting as a scribe for Dr. Kimbrough
[2016-09-04] MEDS: SODIUM CHLORIDE 0.9% 1,000 ML IV SCH ×2 (11:50→14:57)
[2016-09-04] MEDS: CHOLESTYRAMINE (WITH SUGAR) 4 GM PACKET PO SCH ×2 (11:50→18:07)
[2016-09-04] MEDS: MULTIVITAMINS, THERA 1 EACH TAB PO SCH (11:51)
[2016-09-04 12:10] LABS: Glucose,Whole Blood 101 mg/dL (75-99)
[2016-09-04] MEDS: HEPARIN SODIUM,PORCINE 5,000 UNIT/ML 1 ML VIAL SQ SCH (15:04)
[2016-09-04 15:27] VITALS: BP 120/63; PULSE 68; TEMP 97.7
[2016-09-04 17:21] LABS: Glucose,Whole Blood 98 mg/dL (75-99)
--- NOTE | 2016-09-04 18:00 | P.PN ---
Progress Note - Text DATE OF SERVICE: 09/04/2016 PRESENTING COMPLAINT: Perianal pain INTERVAL HISTORY: This 56-year-old gentleman who presented with right perianal abscess. Patient is status post incision and drainage of the abscess 50 mL of purulence was retrieved. Lying in bed appears comfortable,. Ambulatory in the room, was tolerating his diet. In seemingly good spirits, states the pain is much improved, tolerating his diet, states he has a hard time keeping the packing in the dressing, and as such surgery has discontinued the superficial dressing at his request. Moving his bowels. IV antibiotics of vancomycin and Zosyn continue. Awaiting culture results. Discharge planning is underway. REVIEW OF SYSTEMS: Done for constitutional ,cardiovascular, GI, pulmonary with relevant findings as above. CURRENT MEDICATIONS Unasyn IV, Empire, Lipitor, Flexeril, , vancomycin, Flomax. PHYSICAL EXAM VITAL SIGNS: Temperature 96.8, pulse 81, blood pressure 102/73, respiratory rate 16, oxygen saturation 97% on room air. GENERAL APPEARANCE: . Lying in bed, not in distress. EYES: Pupils equal. Conjunctiva normal. NECK: JVD not raised. Mass not palpable. RESPIRATORY: Respiratory effort normal. Lungs clear to auscultation. CARDIOVASCULAR: First and second sounds normal. No edema. ABDOMEN: Soft. Liver and spleen not palpable. No tenderness. No mass palpable. PSYCHIATRY: Alert and oriented x3. Mood and affect normal. INTEGUMENT: Right perianal area with dressing in place no drainage noted INVESTIGATIONS: White blood cell count 8.8, hemoglobin 11.3, all other labs unremarkable. Accu- Cheks noted within normal limits. Buttock wound cultures pending. Awaiting sensitivities ASSESSMENT: Acute right perianal abscess with surrounding cellulitis, failed outpatient treatment, status post incision and drainage, improving Obesity body mass index of 33.5. Type 2 diabetes mellitus on oral hypoglycemics. Hyperlipidemia. Essential Hypertension Hypoglycemia from poor oral intake and patient be nothing by mouth for surgery, resolved PLAN: Continue with current antibiotic treatment per infectious disease await culture results, dressing changes per surgical services, possible discharge in 1-2 days. Discharge plan will include wound care center follow-up, possibly IV antibiotics and home care to assist with dressing the wound. We'll follow closely. RN FIELD CASE MANAGER statement: Patient was seen and examined by nurse practitioner Roma Lorenzana and all elements of the case discussed with attending Dr. King
[2016-09-04 20:38] LABS: Glucose,Whole Blood 109 mg/dL (75-99)
[2016-09-04] MEDS: ATORVASTATIN 20 MG TAB PO SCH (20:49)
[2016-09-04] MEDS: CYCLOBENZAPRINE 10 MG TAB PO SCH (20:49)
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
--- NOTE | 2016-09-04 23:32 | P.DS ---
Providers Date of admission: 09/01/16 09:55 Expected date of discharge: 09/04/16 Attending physician: Freddy King Consults: 09/01/16 09:55 Consult Physician Urgent Consulting Provider: Katie Kimbrough Consult Reason/Comments: Gluteal cellulitis Do you want consulting provider notified?: Yes 09/01/16 14:53 Consult Physician Routine Consulting Provider: Jay Streeter Consult Reason/Comments: perianal abscess Do you want consulting provider notified?: Yes Primary care physician: Ifeanyi [facility] Course: FINAL DIAGNOSES: Acute right perianal abscess with surrounding cellulitis, failed outpatient treatment, status post incision and drainage improving. Obesity body mass index of 33.5. Type 2 diabetes mellitus on oral hypoglycemics. Hyperlipidemia. Essential hypertension. Hypoglycemia from poor oral intake and patient being nothing by mouth for surgery, resolved HOSPTIAL COURSE: This a 56-year-old patient who was admitted with fevers chills and pain to the perianal area. Computed tomography scan suggestive of small localized abscess. IV fluids, Unasyn and IV vancomycin initiated for leukocytosis with a white blood cell count of 18,000. Infectious disease and surgery was consulted. Sitz bath for perianal pain and swelling. Was taken on September 02 for right buttock perineal abscess incision and drainage, iodoform gauze packing in place. 50 ML's of purulence was extracted and sent for culture. Patient responded well to antibiotic therapy, dressing changes per surgical services. Cultures negative and no evidence of MRSA per ID recommendations antibiotic therapy will transition to Augmentin. Patient's tolerating his diet, ambulatory within the room and in the halls. Moving his bowels, patient would very much like to go home. PHYSICAL EXAM: CARDIOVASCULAR: First and second sounds noted no edema. RESPIRATORY: Respiratory effort normal, lungs diminished bilaterally to the bases. GI: Abdomen soft nontender liver and spleen not palpable INTEGUMENT: Wound is approximately 10 x 8 cm in size, packed with iodoform gauze , covered with foam dressing. Patient was seen and examined by nurse practitioner Roma Lorenzana in all elements of the case discussed with attending Dr. King DISOPSITION: Home with home care and to the care of his family. Pertinent Studies: Computed tomography scan of pelvis with contrast: Soft tissue edema in the gluteal region on the right within perineum suggestive of cellulitis. Perianal region on the right there is a 1 cm area of diminished attenuation which is poorly defined which may represent a small phlegmon or developing tiny abscess Right Buttock Wound culture No growth after 48 hours. Patient Condition at Discharge: Stable Plan - Discharge Summary New Discharge Prescriptions: New Amoxic-Pot Clav 875-125Mg [Augmentin 875-125] 1 tab PO Q12HR #14 tablet Continue Lisinopril 40 mg PO DAILY Atorvastatin Calcium [Lipitor] 20 mg PO HS sitaGLIPtin [Januvia] 100 mg PO DAILY metFORMIN HCL 1,000 mg PO BID glipiZIDE [Glucotrol] 10 mg PO BID Cyclobenzaprine [Flexeril] 10 mg PO HS HYDROcodone/APAP 7.5-325MG [Glenelg 7.5-325] 1 tab PO Q6HR PRN PRN Reason: Pain Tamsulosin HCl [Flomax] 0.4 mg PO DAILY Loratadine [Claritin] 10 mg PO DAILY Pioglitazone [Actos] 15 mg PO DAILY [id number]-Lgll [id number] [Excedrin] 1 tab PO Q4HR PRN PRN Reason: Pain Discharge Medication List Atorvastatin Calcium [Lipitor] 20 mg PO HS 10/20/14 [History] Lisinopril 40 mg PO DAILY 10/20/14 [History] glipiZIDE [Glucotrol] 10 mg PO BID 10/20/14 [History] metFORMIN HCL 1,000 mg PO BID 10/20/14 [History] sitaGLIPtin [Januvia] 100 mg PO DAILY 10/20/14 [History] Cyclobenzaprine [Flexeril] 10 mg PO HS 09/18/15 [History] HYDROcodone/APAP 7.5-325MG [Glenelg 7.5-325] 1 tab PO Q6HR PRN 09/18/15 [History] Loratadine [Claritin] 10 mg PO DAILY 09/21/15 [History] Tamsulosin HCl [Flomax] 0.4 mg PO DAILY 09/21/15 [History] [id number]-Cvqy-Wbbh [id number] [Excedrin] 1 tab PO Q4HR PRN 09/01/16 [History] Pioglitazone [Actos] 15 mg PO DAILY 09/01/16 [History] Amoxic-Pot Clav 875-125Mg [Augmentin 875-125] 1 tab PO Q12HR #14 tablet [Rx] Follow up Appointment(s)/Referral(s): Katie Kimbrough MD [STAFF PHYSICIAN] - 1 Week Ifeanyi Davis DO [Primary Care Provider] - 1-2 days [facility] Visiting Nurse, [NON-STAFF] - 1 Week Activity/Diet/Wound Care/Special Instructions: set up for [facility] with Dr. Coy appointment within 1 week Discharge Disposition: HOME WITH HOME HEALTH SERVICES
[2016-09-05] MEDS ORDERED: VANCOMYCIN TROUGH DUE 1 EACH MISC MISCELLANE ONE (07:00)
--- NOTE | 2016-09-07 12:16 | DS ---
DATE OF ADMISSION: 09/01/2016 DATE OF DISCHARGE: 09/04/2016 ATTENDING NOTE: This patient was seen and examined by me on 09/05/2016. Reviewed the discharge summary of my nurse practitioner, Ms. Lorenzana. Discussed additional findings as below. Patient was admitted with right perianal abscess that was drained rather significant amount questionable nonspecific. Antibiotics according to Dr. Streeter. Doing much better at the time of discharge. He is being discharged on Augmentin. On examination, lungs are clear. CARDIOVASCULAR: First and second sounds normal. CONSULTATIONS: Dr. Kimbrough from general surgery, Dr. Streeter from infectious disease. More details in the discharge note.
--- NOTE | 2016-09-17 14:40 | P.OP ---
Date of Procedure: 09/02/16 Preoperative Diagnosis: Postoperative Diagnosis: Procedure(s) Performed: Implants: Indications for Procedure: Operative Findings: Description of Procedure: SURGEON: JIMENEZ TOMPKINS MD AIRPLANE ENGINEER: None. PREOPERATIVE DIAGNOSES: 1. Sepsis due to complicated right buttock abscess 2. Right buttock cellulitis 3. Diabetes type 2, [id number], poorly controlled. 4. Obesity, BMI 33.5. 5. Essential hypertension. 6. Hyperlipidemia. 7. Personal history of methicillin-resistant staph aureus. 8. Previous history of multiple wound ulcers. 9. Gastroesophageal reflux disease. 10. Failed outpatient antibiotic therapy. POSTOPERATIVE DIAGNOSES: 1. Sepsis due to complicated right buttock abscess 2. Right buttock cellulitis 3. Diabetes type 2, [id number], poorly controlled. 4. Obesity, BMI 33.5. 5. Essential hypertension. 6. Hyperlipidemia. 7. Personal history of methicillin-resistant staph aureus. 8. Previous history of multiple wound ulcers. 9. Gastroesophageal reflux disease. 10. Failed outpatient antibiotic therapy. 11. Complicated right buttock/perineal abscess 10 x 5 cm of the deep subcutaneous tissue. 12. Infected hematoma. PROCEDURES PERFORMED: 1. Excision of soft tissue benign lesion 2 cm x 0.5 cm right buttock. 2. Open drainage of complicated complex deep subcutaneous tissue infected hematoma with abscess of the right buttock/perineum 10 x 5 cm with over 60 mL of pus drained. 3. Mechanical debridement with 3 L warm normal saline of 10 x 5 cm. ANESTHESIA: General and local. ESTIMATED BLOOD LOSS: 10 mL. SPECIMENS REMOVED: 1. Soft tissue excision. 2. Aerobic and anaerobic culture of abscess COMPLICATIONS: None. INDICATIONS: The patient is a 56-year-old male who presents with failed outpatient management of right buttock cellulitis. He presented with fevers chills including sepsis. Despite broad-spectrum antibiotics, he continued to have fevers and worsening leukocytosis. Prompt surgical intervention was described. Benefits and risks of immediate drainage was reviewed including bleeding, infection, cosmetic deformity, need for further surgery, for which informed consent was obtained. DESCRIPTION OF PROCEDURE: The patient was brought to the operating room, laid in supine position. After general induction, the patient was repositioned to the prone jackknife position with the buttocks spread apart. The lower back and buttocks were prepped and draped in standard sterile fashion using Betadine. Prior to incision, a timeout protocol was confirmed with surgical team regarding patient's name, procedure to be performed, including preoperative medications for which he had received vancomycin. Large fluctuance palpated at the gluteal fold of the right buttock off the midline. A transverse excision of 2 cm x 0.5 cm was made after localizing the skin. Incision was deepened into subcutaneous tissue were immediately over 60 mL of judd purulent infected hematoma was aspirated and under high pressure. Aerobic and anaerobic cultures were obtained. Along the bed of the wound the fascia was identified. Loculations were disrupted using digital palpation. Bleeding was controlled with electro-Bovie cautery. Next, a total of 3 L of warm normal saline solution pulse lavage was used for mechanical debridement along the entire pocket of the wound. Next, the pocket was widely packed using 12 inches of 1-inch iodoform packing. The skin was cleansed. Next 4 x 4's followed by ABDs were placed and taped to the skin. The patient was awoken from anesthesia and transferred to the postanesthesia care in stable condition. Please note that the instrument, sponge, and needle count was verified correct by surgical resident. Intraoperative findings were described to the patient's family who were pleased with level of care. FINDINGS: 1. Over 60 mL of high pressure infected hematoma creating a 10 x 5 cm pocket extending along the medial right gluteal region/perineum involving the deep subcutaneous tissue.
== END 2016-09-04 23:00 | disposition home health service (06) | DRG 854 ==
LOC: EC 05:53 → 5MS5E 09:55
PROVIDERS: ADMIT Hospitalist; ATTEND Hospitalist
PROC: 0JB90ZZ Excision of Buttock Subcutaneous Tissue and Fascia, Open Approach (ICD-10-PCS; 2016-09-02)
PROC: 0J990ZX Drainage of Buttock Subcutaneous Tissue and Fascia, Open Approach, Diagnostic (ICD-10-PCS; 2016-09-02)
PROC: 0JD90ZZ Extraction of Buttock Subcutaneous Tissue and Fascia, Open Approach (ICD-10-PCS; principal; 2016-09-02 12:00)
DX: A41.9 Sepsis, unspecified organism (principal); K61.0 Anal abscess; E11.649 Type 2 diabetes mellitus with hypoglycemia without coma; L02.215 Cutaneous abscess of perineum; L02.31 Cutaneous abscess of buttock; L03.317 Cellulitis of buttock; E11.65 Type 2 diabetes mellitus with hyperglycemia; I10 Essential (primary) hypertension; E66.01 Morbid (severe) obesity due to excess calories; Z68.33 Body mass index [BMI] 33.0-33.9, adult; E78.5 Hyperlipidemia, unspecified; K21.9 Gastro-esophageal reflux disease without esophagitis; F12.90 Cannabis use, unspecified, uncomplicated; G89.29 Other chronic pain; M54.9 Dorsalgia, unspecified; Z86.14 Personal history of Methicillin resistant Staphylococcus aureus infection; F17.210 Nicotine dependence, cigarettes, uncomplicated; Z90.49 Acquired absence of other specified parts of digestive tract; Z79.82 Long term (current) use of aspirin; Z79.84 Long term (current) use of oral hypoglycemic drugs; Z79.899 Other long term (current) drug therapy
CPT/HCPCS: 36415; 72193; 80048; 80202; 83036; 83605; 85025; 87040; 87070; 87075; 87205; 88304; 88305; 94760; 96361; 96365; 96366; 99285

== ENCOUNTER → 2016-10-26 | Outpatient (CLI) | payer OTHER ==
[2016-10-26 11:16] LABS: Blood Urea Nitrogen 14 mg/dL (9-20); Non-African American GFR(MDRD) >60 (>60 ml/min/1.73 sqM)
--- NOTE | 2016-10-26 12:50 | CT ---
EXAMINATION TYPE: CT angio chest DATE OF EXAM: 10/26/2016 COMPARISON: 11/02/2015 HISTORY: 56-year-old male aneurysm of descending thoracic aorta TECHNIQUE: Contiguous axial scanning of the chest performed without and with IV Contrast, patient inj ected with 100 ml mL of Omnipaque 350. Coronal/sagittal MIP reconstructions performed. 3-D reconstruc tions generated on a dedicated independent workstation. CT DLP: 999 mGycm Automated exposure control for dose reduction was used. FINDINGS: The heart is normal size without pericardial effusion. The ascending aorta is ectatic at 3.7 cm, not significantly changed from prior exam. There is aberrant right subclavian artery which takes a retroesophageal course. Mild atherosclerotic arch calcifications. The distal arch is aneurysmal at 3.6 cm, not significantly changed. The remainder of the descending thoracic aorta is normal caliber. No evidence for aortic dissection are acute intramural hematoma when referring to the noncontrast ser ies. Scattered nonenlarged mediastinal lymph nodes are present. Evaluation of the lungs shows mild dependent atelectasis. There is centrilobular emphysema in the upp er lungs. No consolidation or pleural effusion. There is a 2.3 cm round fat containing lesion in the right adrenal gland stable from prior. Moderate multilevel disc/endplate degenerative change, relatively severe at L1-L2 as seen previously. IMPRESSION: 1. STABLE ANEURYSM OF THE DISTAL AORTIC ARCH AT 3.6 CM. THE ASCENDING AORTA REMAINS ECTATIC AT 3.7 CM . 2. ABERRANT RIGHT SUBCLAVIAN ARTERY. 3. COPD WITH MILD TO MODERATE EMPHYSEMA. 4. STABLE 2.3 CM FAT-CONTAINING RIGHT ADRENAL GLAND LESION COMPATIBLE WITH A MYELOLIPOMA.
== END | disposition home or self-care (01) ==
LOC: RADCTMAIN 10:33
PROVIDERS: ATTEND Thoracic Surgery (Cardiothoracic Vascular Surgery)
DX: I71.2 Thoracic aortic aneurysm, without rupture (principal); Q27.8 Other specified congenital malformations of peripheral vascular system; J43.9 Emphysema, unspecified; E27.8 Other specified disorders of adrenal gland
CPT/HCPCS: 82565; 84520; 71275; 36415; Q9967

== ENCOUNTER → 2016-11-01 | Outpatient (CLI) | payer OTHER ==
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
== END | disposition home or self-care (01) ==
LOC: RADMRIMAIN 07:06
PROVIDERS: ATTEND Neurological Surgery
DX: M48.06 Spinal stenosis, lumbar region (principal); M51.36 Other intervertebral disc degeneration, lumbar region; M48.04 Spinal stenosis, thoracic region; M51.24 Other intervertebral disc displacement, thoracic region; M51.34 Other intervertebral disc degeneration, thoracic region; Z98.1 Arthrodesis status
CPT/HCPCS: 72146; 72158; A9577

== ENCOUNTER → 2017-05-24 | Outpatient (CLI) | payer OTHER ==
--- NOTE | 2017-05-24 10:48 | XR ---
EXAMINATION TYPE: XR chest 2V DATE OF EXAM: 05/24/2017 COMPARISON: 06/02/2016 HISTORY: Crackles on examination with shortness of breath. TECHNIQUE: Frontal and lateral views of the chest are obtained. FINDINGS: There is no focal air space opacity, pleural effusion, or pneumothorax seen. The cardiac silhouette size is within normal limits. The osseous structures are intact. Prominence of the upper mediastinum, unchanged from the prior, relates to an apparent right subclavian artery. Partial visua lization of cervical postsurgical changes. IMPRESSION: No acute cardiopulmonary process. No evidence of focal consolidation or pulmonary edema.
== END ==
LOC: RADXRMAIN 10:11
PROVIDERS: ATTEND Family Medicine
DX: R09.89 Other specified symptoms and signs involving the circulatory and respiratory systems (principal)
CPT/HCPCS: 71046

== ENCOUNTER → 2017-10-31 | Outpatient (CLI) | payer OTHER ==
--- NOTE | 2017-10-31 13:51 | XR ---
EXAMINATION TYPE: XR chest 2V DATE OF EXAM: 10/31/2017 COMPARISON: 05/24/2017 HISTORY: Presurgical clearance. Chest pain. TECHNIQUE: Frontal and lateral views of the chest are obtained. FINDINGS: There is no focal air space opacity, pleural effusion, or pneumothorax seen. The cardiac silhouette size is upper limits of normal. The osseous structures are intact. IMPRESSION: No acute cardiopulmonary process.
== END | disposition home or self-care (01) ==
LOC: RADXRMAIN 13:28
PROVIDERS: ATTEND Family Medicine
DX: K27.9 Peptic ulcer, site unspecified, unspecified as acute or chronic, without hemorrhage or perforation (principal)
CPT/HCPCS: 71046

== ENCOUNTER → 2018-01-13 | Outpatient (CLI) | payer OTHER ==
--- NOTE | 2018-01-13 10:30 | XR ---
EXAMINATION TYPE: XR cervical spine w flex/ext DATE OF EXAM: 01/13/2018 TECHNIQUE: Frontal, lateral, oblique, swimmers, and open mouth view of the cervical spine are obtaine d. Flexion and extension views are also obtained. HISTORY: M50.922 cervical disc disorder COMPARISON: 02/11/2016 FINDINGS: At C4-5 there is stable left intervertebral prosthesis noted. There is instability noted at this leve l with grade 1 anterolisthesis at neutral measuring 4.3 mm which reduces upon extension and increases slightly to 4.6 mm at flexion. Intervertebral body disc prosthesis has been placed in the interval at C5-6 and C6-7. Alignment is st able at neutral, flexion and extension. Remaining cervical levels are within normal limits. IMPRESSION: 1. Postoperative changes as discussed. 2. At C4-5 there is stable left intervertebral prosthesis noted. There is instability noted at this l evel with grade 1 anterolisthesis at neutral measuring 4.3 mm which reduces upon extension and increa ses slightly to 4.6 mm at flexion.
== END | disposition home or self-care (01) ==
LOC: RADXRMAIN 10:01
PROVIDERS: ATTEND Neurological Surgery
DX: M43.12 Spondylolisthesis, cervical region (principal); Z98.890 Other specified postprocedural states
CPT/HCPCS: 72052

== ENCOUNTER → 2018-05-06 | Outpatient (CLI) | payer OTHER ==
--- NOTE | 2018-05-07 11:36 | ECHOF ---
Referral Reason:Z01.818 preprocedural examination MEASUREMENTS -------- HEIGHT: 182.9 cm WEIGHT: 117.9 kg BP: RVIDd: 2.8 cm (< 3.3) IVSd: 1.3 cm (0.6 - 1.1) LVIDd: 5.0 cm (3.9 - 5.3) LVPWd: 1.1 cm (0.6 - 1.1) IVSs: 1.7 cm LVIDs: 3.4 cm LVPWs: 1.1 cm LA Diam: 3.9 cm (2.7 - 3.8) Ao Diam: 3.9 cm (2.0 - 3.7) AV Cusp: 1.5 cm (1.5 - 2.6) LA Diam: 3.7 cm (2.7 - 3.8) MV EXCURSION: 13.275 mm (> 18.000) MV EF SLOPE: 70 mm/s (70 - 150) EPSS: 1.1 cm MV E Rajesh: 0.58 m/s MV DecT: 176 ms MV A Rajesh: 0.64 m/s MV E/A Ratio: 0.90 RAP: 5.00 mmHg RVSP: 16.46 mmHg FINDINGS -------- Sinus rhythm. This was a technically adequate study. The left ventricular size is normal. There is mild concentric left ventricular hypertrophy. Overa ll left ventricular systolic function is low-normal with, an EF between 50 - 55 %. The right ventricle is normal in size. The left atrial size is normal. The right atrial size is normal. The aortic valve is trileaflet, and appears structurally normal. No aortic stenosis or regurgitation. Mild mitral annular calcification present. Mild mitral regurgitation is present. Mild tricuspid regurgitation present. There is no evidence of pulmonary hypertension. The right v entricular systolic pressure, as measured by Doppler, is 16.46mmHg. There is no pulmonic regurgitation present. The aortic root size is normal. Echo free space represents a pericardial fat pad. CONCLUSIONS -------- 1. The left ventricular size is normal. 2. There is mild concentric left ventricular hypertrophy. 3. Overall left ventricular systolic function is low-normal with, an EF between 50 - 55 %. 4. The right atrial size is normal. 5. The aortic valve is trileaflet, and appears structurally normal. No aortic stenosis or regurgitati on. 6. Mild mitral annular calcification present. 7. Mild mitral regurgitation is present. 8. Mild tricuspid regurgitation present. 9. There is no evidence of pulmonary hypertension. 10. The right ventricular systolic pressure, as measured by Doppler, is 16.46mmHg. 11. There is no pulmonic regurgitation present. 12. The aortic root size is normal. 13. Echo free space represents a pericardial fat pad. REGISTERED DENTAL ASSISTANT RDA: Hannah Ruby RDCS
== END ==
LOC: RADECHMAIN 13:52
PROVIDERS: ATTEND Family Medicine
DX: Z01.818 Encounter for other preprocedural examination (principal); I08.1 Rheumatic disorders of both mitral and tricuspid valves
CPT/HCPCS: 93306

== ENCOUNTER → 2018-09-10 | Outpatient (CLI) | payer OTHER ==
--- NOTE | 2018-09-17 16:08 | P.ARTDOP ---
Arterial Doppler LOWER EXTREMITY ARTERIAL DOPPLER: DATE OF SERVICE: 09/10/2018 Reason for study: Decreased pulses. Doppler waveforms: Multiphasic bilaterally throughout. Pulse volume recording: []. Pressure gradients: None. Ankle-brachial indices: Greater than 1 on the left and 0.99 on the right. Toe pressures: 118 on the right, 111 on the left Impression: Normal study.
== END | disposition home or self-care (01) ==
LOC: RADUSWWP 07:46
PROVIDERS: ATTEND Family Medicine
DX: R09.89 Other specified symptoms and signs involving the circulatory and respiratory systems (principal)
CPT/HCPCS: 93922

== ENCOUNTER → 2018-09-15 | Outpatient (CLI) | payer OTHER ==
[2018-09-15 08:34] LABS: African American GFR (CKD) >90 (>60 ml/min/1.73 sqM); Blood Urea Nitrogen 17 mg/dL (9-20)
--- NOTE | 2018-09-15 09:53 | CT ---
EXAMINATION TYPE: CT angio chest DATE OF EXAM: 09/15/2018 9:19 AM COMPARISON: 10/26/2016 HISTORY: Thoracic artic aneurysm, w/o rupture CT DLP: 520 mGycm Automated exposure control for dose reduction was used. CONTRAST: CTA scan of the thorax is performed with IV Contrast, patient injected with 100 mL of Isovue 370, pul monary embolism protocol. . FINDINGS: The heart is normal size without pericardial effusion. The ascending aorta is ectatic at 3.8 cm, not significantly changed from prior exam. There is aberrant right subclavian artery which takes a retroesophageal course. Mild atherosclerotic arch calcifications. The distal arch is aneurysmal at 3.6 cm, not significantly changed. The remainde r of the descending thoracic aorta is normal caliber. No evidence for aortic dissection are acute intramural hematoma when referring to the noncontrast ser ies. Scattered nonenlarged mediastinal lymph nodes are present. Evaluation of the lungs shows mild de pendent atelectasis. There is centrilobular emphysema in the upper lungs. No consolidation or pleural effusion. There is a 2.3 cm round fat containing lesion in the right adrenal gland stable from prior. Moderate multilevel disc/endplate degenerative change, relatively severe at L1- L2 as seen previously. Tiny ga llstones are seen. Low attenuation in the liver suggestive of fatty infiltration. Small hypodensity i n the posterior segment of the right lobe the liver is indeterminate and too small to characterize. N odular thickening of the left adrenal gland stable. IMPRESSION: 1. STABLE ANEURYSM OF THE DISTAL AORTIC ARCH AT 3.6 CM. THE ASCENDING AORTA REMAINS ECTATIC AT 3.8 CM . 2. ABERRANT RIGHT SUBCLAVIAN ARTERY. 3. COPD WITH MILD TO MODERATE EMPHYSEMA. 4. STABLE 2.3 CM FAT-CONTAINING RIGHT ADRENAL GLAND LESION COMPATIBLE WITH A MYELOLIPOMA.
== END | disposition home or self-care (01) ==
LOC: RADCTMAIN 07:57
PROVIDERS: ATTEND Family Medicine
DX: I71.2 Thoracic aortic aneurysm, without rupture (principal); J43.9 Emphysema, unspecified; Q27.8 Other specified congenital malformations of peripheral vascular system; Z13.9 Encounter for screening, unspecified
CPT/HCPCS: 82565; 84520; 71275; 36415; Q9967

== ENCOUNTER 2018-09-27 17:57 | Emergency (ER) | payer OTHER ==
[2018-09-27 18:06] VITALS: BP 119/80; PULSE 82; RESP 20; TEMP 98
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
== END 2018-09-27 19:10 | disposition home or self-care (01) ==
LOC: EC 17:57
DX: N48.21 Abscess of corpus cavernosum and penis (principal); E11.9 Type 2 diabetes mellitus without complications; K21.9 Gastro-esophageal reflux disease without esophagitis; E78.5 Hyperlipidemia, unspecified; I10 Essential (primary) hypertension; F17.200 Nicotine dependence, unspecified, uncomplicated; Z86.14 Personal history of Methicillin resistant Staphylococcus aureus infection; Z79.84 Long term (current) use of oral hypoglycemic drugs; Z79.899 Other long term (current) drug therapy; Z88.8 Allergy status to other drugs, medicaments and biological substances; Z91.09 Other allergy status, other than to drugs and biological substances
CPT/HCPCS: 10160; 87070; 87205; 99283

== ENCOUNTER → 2019-04-28 | Outpatient (CLI) | payer OTHER ==
--- NOTE | 2019-04-28 11:44 | XR ---
EXAMINATION TYPE: XR chest 2V DATE OF EXAM: 04/28/2019 COMPARISON: October 31, 2017 HISTORY: Shortness of breath TECHNIQUE: Frontal and lateral views of the chest are obtained. FINDINGS: Scattered senescent parenchymal changes noted. No evidence for infiltrate. No evidence for atelectasis. Heart size is stable. Mediastinal structures are stable and grossly unremarkable. No evidence for hilar prominence. Degenerative changes dorsal spine. IMPRESSION: 1. No evidence for acute pulmonary disease.
== END | disposition home or self-care (01) ==
LOC: RADXRMAIN 11:16
PROVIDERS: ATTEND Family Medicine
DX: R09.89 Other specified symptoms and signs involving the circulatory and respiratory systems (principal)
CPT/HCPCS: 71046

== ENCOUNTER → 2020-03-01 | Outpatient (CLI) | payer OTHER ==
[2020-03-01 10:24] LABS: HCT 44.6 % (39.0-53.0); MCH 32.7 pg (25.0-35.0); MCHC 33.6 g/dL (31.0-37.0); MCV 97.2 fL (80.0-100.0); Mean Platelet Volume 7.5; Platelet Count 283 k/uL (150-450); RBC 4.59 m/uL (4.30-5.90); RDW 12.9 % (11.5-15.5); WBC 11.8 k/uL (3.8-10.6)
[2020-03-01 10:48] LABS: African American GFR (CKD) >90 (>60 ml/min/1.73 sqM); Anion Gap 7 mmol/L; Blood Urea Nitrogen 14 mg/dL (9-20); Carbon Dioxide 24 mmol/L (22-30); Chloride 107 mmol/L (98-107); Non-African American GFR(CKD) 83 (>60 ml/min/1.73 sqM); Potassium 4.7 mmol/L (3.5-5.1); Sodium 138 mmol/L (137-145)
== END | disposition home or self-care (01) ==
LOC: LABPAT 09:02
PROVIDERS: ATTEND Internal Medicine Interventional Cardiology
DX: Z01.818 Encounter for other preprocedural examination (principal); I73.9 Peripheral vascular disease, unspecified
CPT/HCPCS: 36415; 80051; 82565; 84520; 85027

== ENCOUNTER → 2021-01-26 | Outpatient (CLI) | payer OTHER ==
--- NOTE | 2021-01-27 08:05 | XR ---
EXAMINATION TYPE: XR lumbosacral spine min 4V DATE OF EXAM: 01/26/2021 COMPARISON: 09/21/2015 HISTORY: Back pain TECHNIQUE: AP, bilateral oblique, lateral, cone-down, flexion and extension views of the lumbar spine . FINDINGS: There are 5 nonrib-bearing lumbar-type vertebral bodies. Vertebral body heights are preserved. Patien t is status post posterior fusion of L4-5. There is mild retrolisthesis of L2 on 3, L3 on 4 and L4 on 5 measuring 5 mm, 5 mm and 3 mm respectively without abnormal motion on flexion and extension imagin g. Multilevel endplate sclerosis and osteophytosis is seen with lower lumbar facet arthropathy. Vascu lar calcifications are noted. IMPRESSION: Lower lumbar postoperative changes with multilevel disc disease and osteoarthritic change s and multilevel retrolisthesis without abnormal motion on flexion and extension imaging.
--- NOTE | 2021-01-27 08:54 | CT ---
EXAMINATION TYPE: CT lumbar spine wo con DATE OF EXAM: 01/26/2021 COMPARISON: Radiograph same day showing L4-L5 posterior and interbody fusion HISTORY: 60-year-old male back pain and numbness in legs. History of fusion in 2018. Assessment of L1 -L4 and L5-S1. TECHNIQUE: Contiguous axial scanning of the lumbar spine without IV contrast. Coronal and sagittal re constructions performed. CT DLP: 2519 mGycm Automated exposure control for dose reduction was used. FINDINGS: There is a 2.7 cm fat density lesion of the right adrenal gland suggesting a benign myelolipoma. Mild degenerative change at the SI joints. Post surgical changes of L4-L5 posterior and interbody fusion. There is a left sided laminotomy defec t at L4. Advanced degenerative disc disease throughout the entire lumbar spine with degenerated, narrowed, and desiccated disc. There are either disc bulges or disc osteophyte complexes. Additional hypertrophic facet arthropathy greatest in the lower lumbar spine. There is grade 1 retrolisthesis at both L2-L3 and L3-L4 and grade 1 anterolisthesis at L5-S1. Vertebral body heights are preserved. At T12-L1, no canal or foraminal stenosis. At L1-L2, severe degenerative disc disease with broad-based discussed by complex impressing onto the ventral thecal sac causing a mild overall spinal canal stenosis. Disc osteophyte complex extends off to the size injury to [id number] left and moderate right neuroforaminal stenosis. At L2-L3, hypertrophic facet arthropathy with diffuse disc bulge and grade 1 retrolisthesis. Suspect moderate spinal canal stenosis here. Changes result in [id number] left and moderate right neuro foraminal stenosis. Above the fusion at L3-L4, hypertrophic facet arthropathy with disc bulge and grade 1 retrolisthesis. Suspect a mild narrowing of the spinal canal. Metal artifact limits assessment. Moderate to severe r ight and moderate left neuroforaminal stenosis. At the fused L4-L5 level, no obvious canal compromise. However, there is disc osteophyte complex. The left neuroforamen is opened up due to the laminotomy/foraminotomy. However, on the right, there may be a severe bony neuroforaminal stenosis. At L5-S1, below the fusion, there is hypertrophic facet arthropathy with grade 1 anterolisthesis and mild disc bulge. No significant spinal canal stenosis.. Moderate bilateral neural foraminal stenosis. Left lateral disc osteophyte complex may abut the extraforaminal left L5 nerve root. IMPRESSION: 1. STATUS POST L4-L5 POSTERIOR AND INTERBODY FUSION ALONG WITH LEFT L4 LAMINOTOMY/FORAMINOTOMY DEFECT . 2. SEVERE DEGENERATIVE DISC DISEASE THROUGHOUT THE REMAINDER OF THE LUMBAR SPINE ALONG WITH HYPERTROP HIC FACET ARTHROPATHY. 3. A DEGENERATIVE GRADE 1 RETROLISTHESIS L2-L3 AND L3-L4. GRADE 1 ANTEROLISTHESIS OF L5-S1. 4. CHANGES RESULT IN MILD SPINAL CANAL STENOSIS AT L1-L2 AND L3-L4. MODERATE AT L2-L3. 5. THERE MAY BE A SEVERE BONY NEURAL FORAMINAL STENOSIS ON THE RIGHT AT THE FUSED L4-L5 LEVEL. 6. MODERATE NEUROFORAMINAL STENOSIS ON BOTH SIDES AT L5-S1. HOWEVER, LEFT LATERAL DISC OSTEOPHYTE COM PLEX MAY ABUT THE EXTRAFORAMINAL LEFT L5 NERVE ROOT HERE. 7. MODERATE RIGHT NEUROFORAMINAL STENOSIS AT BOTH L1-L2 AND L2-L3. MODERATE TO SEVERE ON THE RIGHT AN D MODERATE ON THE LEFT AT L3-L4.
== END | disposition home or self-care (01) ==
LOC: RADCTMAIN 18:25
PROVIDERS: ATTEND Neurological Surgery
DX: M48.061 Spinal stenosis, lumbar region without neurogenic claudication (principal); M51.36 Other intervertebral disc degeneration, lumbar region; M46.97 Unspecified inflammatory spondylopathy, lumbosacral region; M43.17 Spondylolisthesis, lumbosacral region
CPT/HCPCS: 72110; 72131

== ENCOUNTER → 2021-05-26 | Outpatient (CLI) | payer OTHER ==
[2021-05-27 13:27] LABS: Coronavirus SARS CoV-2 Not Detected (Not Detected)
== END | disposition home or self-care (01) ==
LOC: LABWHC1 13:38
PROVIDERS: ATTEND Neurological Surgery
DX: S33.130A Subluxation of L3/L4 lumbar vertebra, initial encounter (principal); M47.26 Other spondylosis with radiculopathy, lumbar region; X58.XXXA Exposure to other specified factors, initial encounter
CPT/HCPCS: U0003; U0005

== ENCOUNTER 2021-12-15 07:57 | Day surgery (SDC) | payer OTHER ==
[2021-12-13 10:20] VITALS: BMI 33.2
[~2021-12-15 07:57] MED LIST: ALPRAZolam 0.25 MG TAB PO PRN; ALPRAZolam 0.5 MG TAB PO PRN; ASPIRIN 325 MG TAB PO ONE; ATORVASTATIN 80 MG TAB PO ONE; HEPARIN SODIUM,PORCINE 10,000 UNIT in SODIUM CHLORIDE 0.9% 1,000 ML IRRIGATION PRN; HEPARIN SODIUM,PORCINE 2,500 UNIT in SODIUM CHLORIDE 0.9% 250 ML IRRIGATION PRN; NITROGLYCERIN SL TABS 0.4 MG TAB SUBLINGUAL PRN; SODIUM CHLORIDE 0.9% 1,000 ML in EMPTY BAG 1 BAG IV SCH
[2021-12-15] MEDS ORDERED: SODIUM CHLORIDE 0.9% 1,000 ML IV ONE (08:03)
[2021-12-15 08:26] LABS: Glucose,Whole Blood 182 mg/dL (70-110)
[2021-12-15 08:44] VITALS: RESP 16
[2021-12-15] MEDS ORDERED: HEPARIN SODIUM 1,000 UN/ML (10ML VL) ONE ×2 (09:10→10:07)
[2021-12-15] MEDS ORDERED: VERAPAMIL 2.5 MG/ML 2 ML AMP ONE (09:10)
[2021-12-15] MEDS ORDERED: MIDAZOLAM 2 MG/2 ML VIAL IVP ONE ×2 (09:30→10:03)
[2021-12-15] MEDS ORDERED: LIDOCAINE 1% INJ 10MG/ML (30 ML VIAL-PF) SQ ONE (09:31)
[2021-12-15] MEDS ORDERED: HEPARIN SODIUM 1,000 UN/ML (10ML VL) IVP ONE ×4 (09:31→10:48)
[2021-12-15] MEDS ORDERED: VERAPAMIL SYRINGE (5 MG/10 ML) INTRAARTER ONE (09:32)
[2021-12-15] MEDS ORDERED: CLOPIDOGREL 75 MG TAB ONE (10:38)
[2021-12-15] MEDS ORDERED: CLOPIDOGREL 75 MG TAB PO ONE (10:41)
[2021-12-15] MEDS ORDERED: IOPAMIDOL-370 125ML BTL INJ ONE (10:43)
[2021-12-15] MEDS ORDERED: IOPAMIDOL-370 100ML BTL INJ ONE (10:44)
[2021-12-15] MEDS ORDERED: RX INFO: IV CONTRAST WAS GIVEN 1 EACH MISC MISCELLANE PRN (10:46)
[2021-12-15] MEDS ORDERED: ATROPINE SULFATE 0.1 MG/ML 10ML SYRINGE IV PRN (10:46)
[2021-12-15] MEDS ORDERED: ZOLPIDEM 5 MG TAB PO PRN (10:46)
[2021-12-15] MEDS ORDERED: NITROGLYCERIN SL TABS 0.4 MG TAB SUBLINGUAL PRN (10:46)
[2021-12-15] MEDS ORDERED: MAG HYDROX/AL HYDROX/SIMETH 30 ML CUP PO PRN (10:46)
[2021-12-15] MEDS ORDERED: SODIUM CHLORIDE 0.9% 1,000 ML in EMPTY BAG 1 BAG IV SCH (11:00)
[2021-12-15] MEDS ORDERED: HYDROcodone/APAP 10-325MG 1 EACH TAB PO PRN (11:09)
[2021-12-15 14:32] VITALS: BP 118/81; PULSE 95; TEMP 98
[2021-12-15] MEDS ORDERED: CYCLOBENZAPRINE 10 MG TAB PO SCH (16:00)
--- NOTE | 2021-12-15 18:30 | P.PCN ---
Date of Procedure: 12/15/21 Operative Findings: CARDIAC CATHETERIZATION AND PERCUTANEOUS CORONARY INTERVENTION PERFORMING PHYSICIAN: Jaswant Monahan MD, RPVI PROCEDURE PERFORMED: 1. Selective right and left coronary angiogram 2. Left heart catheterization 3. Successful stenting of distal right coronary artery using 3.5 x 33 mm Xience RITA with an excellent angiographic results 4. Successful stenting of the mid RCA using 4.0 x 38 mm Xience RITA with an ex cellent angiographic result 5. Intravascular ultrasound of the RCA INDICATION: This is a 61-year-old gentleman who was seen in the office recently after recent hospital admission with a chest discomfort and ruled in for acute coronary syndrome but he was discharged AMA. He was seen in the office where he continues to have chest discomfort and in the light of that a heart catheterization was advised COMPLICATION: None APPROACH: Right radial artery LEVEL OF SEDATION: Moderate with the sedation time off 60 minutes PROCEDURE DESCRIPTION: After obtaining an informed consent the patient was brought to the cardiac mechanical shop laborer. The right radial artery was cannulated using micropuncture technique, the micropuncture wire passed easily then I placed a 6-Welsh sheath. After that I did give the patient 2 mg of verapamil intra-arterial and initially 6000 as of heparin IV. Selective right and left coronary angiogram performed using JR4 and JL 3.5 catheters. After that I did intervene on the right coronary artery please see a description later on during this report SELECTIVE CORONARY ANGIOGRAM: The right coronary artery: Large-caliber vessel and a dominant vessel. The RCA is calcified and tortuous with diffuse disease involving the mid to distal portion up to about 80% in the midportion. Left main: Is angiographically normal. Gives rises into an LCx and LAD The left circumflex: Large caliber vessel nondominant vessel. The proximal LCx is angiographically normal. Gives rises into a large OM. It bifurcates into 2 subbranches. The upper subbranch has a tight lesion appeared to be in the range of 80% but the vessel is only about 2 mm in diameter. The lower subbranch appeared to be angiographically normal The left anterior descending artery: The LAD is a large caliber vessel was mild disease only. Gives rises into a small diagonal branch. HEMODYNAMICS: The LVEDP was about 10 mmHg was no significant gradient across aortic valve PCI OF THE RCA: Anticoagulation was initiated using heparin with continuous ACT monitoring. Additional heparin was given during the procedure based on the ACT. I did engage the RCA using an a.l. 0.75 guiding catheter. Subsequently I did wire the RCA using a run-through wire. I did balloon angioplasty of the RCA using 3 mm balloon were I did PTCA ballooning of the distal and mid RCA. Attempting advancing a 3.5 x 38 mm was unsuccessful because the stent will not make the turn from the mid to distal RCA. Attempting using guide liner was unsuccessful as well. Attempting using mitchell wire was also unsuccessful in delivering the stent. At that point I did dilated the RCA again using a 3.5 mm noncompliant balloon and subsequently for all millimeter balloon. With that I was able to deliver the stent with adjunctive use of guide liner where the stent was positioned in the distal RCA and deployed under its nominal pressure. Sub sequently other stent which was 4.0 x 38 mm was advanced and it was delivered to the mid RCA with about 2 mm overlap between the 2 stents. The final angiogram showed good angiographic results and the procedure was completed without any complication. Intravascular ultrasound was performed and showed that the stent was well opposed to the wall and at that point we decided to stop. CONCLUSION: Critical disease involving the RCA. Successful stenting was performed to the distal and mid RCA Critical disease involving OM1 which is a 2 mm vessel POSTPROCEDURE MANAGEMENT: #1 dual antiplatelet therapy using aspirin and Plavix for at least 6 month and preferably twelve-month #2 aggressive cholesterol control #3 follow-up with the patient
[2021-12-15] MEDS ORDERED: ATORVASTATIN 80 MG TAB PO SCH (21:00)
[2021-12-15] MEDS ORDERED: hydroCHLOROthiazide 25 MG TAB PO SCH (21:00)
[2021-12-15] MEDS ORDERED: GLIMEPIRIDE 4 MG TAB PO SCH (21:00)
[2021-12-16] MEDS ORDERED: INSULIN DETEMIR (LEVEMIR) 100 UNIT/ML SYR SQ SCH (07:00)
[2021-12-16] MEDS ORDERED: PANTOPRAZOLE 40 MG TABLET PO SCH (07:30)
[2021-12-16] MEDS ORDERED: lisinopriL 20 MG TAB PO SCH (09:00)
[2021-12-16] MEDS ORDERED: ASPIRIN 81 MG PO SCH (09:00)
[2021-12-16] MEDS ORDERED: CLOPIDOGREL 75 MG TAB PO SCH (09:00)
[2021-12-17] MEDS ORDERED: NON FORMULARY DRUG (Dulaglutide [Trulicity] 3 MG/0.5 ML Each) SQ SCH (09:00)
== END 2021-12-15 17:15 | disposition home or self-care (01) ==
LOC: CATHCVL 07:57 → 6NMEDSUR 10:42 → CATHCVL 17:15
PROVIDERS: ATTEND Internal Medicine Interventional Cardiology
DX: I25.110 Atherosclerotic heart disease of native coronary artery with unstable angina pectoris (principal); I10 Essential (primary) hypertension; E78.5 Hyperlipidemia, unspecified; E11.9 Type 2 diabetes mellitus without complications; F17.210 Nicotine dependence, cigarettes, uncomplicated; Z20.822 Contact with and (suspected) exposure to COVID-19; Z79.84 Long term (current) use of oral hypoglycemic drugs; Z79.02 Long term (current) use of antithrombotics/antiplatelets; Z79.82 Long term (current) use of aspirin; Z79.4 Long term (current) use of insulin; Z79.899 Other long term (current) drug therapy; Z88.6 Allergy status to analgesic agent
CPT/HCPCS: 92978; 93458; 87635; C1769 ×4; C9600; C1887 ×2; C1894; C1725 ×4; C1753; C1874 ×3; J2250; J2001; J1644; Q9967 ×2

== ENCOUNTER → 2022-06-14 | Outpatient (CLI) | payer OTHER ==
--- NOTE | 2022-06-14 14:16 | CTL ---
EXAMINATION TYPE: CT Low Dose Lung DATE OF EXAM ORDERED: 06/14/2022 HISTORY: . Lung cancer screening CT DLP: 90.[address] CTDI: 2.4 mGy Automated exposure control for dose reduction was used. SCREENING VISIT: Initial COMPARISON: CT chest 09/15/2018 TECHNIQUE: Low dose computed tomography scan was performed through the chest at 1 mm thick sections a nd reconstructed images in the coronal plane at [address] DIAGNOSTIC QUALITY: Satisfactory FINDINGS: LUNG NODULES: None. LUNGS: COPD: Severity: Mild Fibrosis: Severity: None Lymph nodes: None Other findings: None RIGHT PLEURAL SPACE: Effusion: None Calcification: None Thickening: None Pneumothorax: None LEFT PLEURAL SPACE: Effusion: None Calcification: None Thickening: None Pneumothorax: None HEART: Heart Size: Normal Coronary calcification: Minimal Pericardial effusion: None OTHER FINDINGS: Upper abdomen: Normal Bony thorax: Normal Supraclavicular region: Normal Other: Ascending thoracic aorta at the level the main pulmonary artery measures 4.0 cm. The main pul monary artery at the bifurcation measures 3.1 cm. IMPRESSION: 1. No suspicious changes to suggest primary or metastatic neoplasm FOLLOW UP CT CHEST RECOMMENDATION: Low-dose CT chest [address] LUNG RAD: Lung-Rad 1 Negative
== END | disposition home or self-care (01) ==
LOC: RADCTMAIN 09:48
PROVIDERS: ATTEND Family Medicine
DX: Z12.2 Encounter for screening for malignant neoplasm of respiratory organs (principal); F17.210 Nicotine dependence, cigarettes, uncomplicated
CPT/HCPCS: 71271

== ENCOUNTER → 2023-06-26 | Outpatient (CLI) | payer OTHER ==
--- NOTE | 2023-06-27 12:06 | US ---
EXAMINATION TYPE: US venous doppler duplex LE DATE OF EXAM: 06/26/2023 10:27 AM COMPARISON: NONE CLINICAL INDICATION: Male, 63 years old with history of R60.0 LOCALIZED EDEMA BLE; Leg swelling and r edness. SIDE PERFORMED: Bilateral TECHNIQUE: The lower extremity deep venous system is examined utilizing real time linear array sonog heather with graded compression, doppler sonography and color-flow sonography. VESSELS IMAGED: Common Femoral Vein Deep Femoral Vein Greater Saphenous Vein * Femoral Vein Popliteal Vein Small Saphenous Vein * Proximal Calf Veins (* superficial vessels) Limited visibility due to leg swelling Right Leg: Negative for DVT Left Leg: Negative for DVT IMPRESSION: Grayscale, color doppler, spectral doppler imaging performed of the deep veins of the lo wer extremities. There is normal flow, compressibility, vascular waveforms.
== END | disposition home or self-care (01) ==
LOC: RADUSWWP 09:57
PROVIDERS: ATTEND Internal Medicine Interventional Cardiology
DX: R60.0 Localized edema (principal)
CPT/HCPCS: 93970

== ENCOUNTER 2023-06-27 10:45 | Observation (INO) | payer OTHER ==
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
[2023-06-27 11:40] LABS: Basophils # (A) 0.1 k/uL (0-0.2); Basophils % (A) 1 %; Eosinophils # (A) 0.1 k/uL (0-0.7); Eosinophils % (A) 1 %; HCT 40.1 % (39.0-53.0); HGB 12.4 gm/dL (13.0-17.5); Hypochromasia Moderate; Lymphocytes # (A) 1.8 k/uL (1.0-4.8); Lymphocytes % (A) 18 %; MCH 27.8 pg (25.0-35.0); MCV 89.9 fL (80.0-100.0); Mean Platelet Volume 9.9; Monocytes # (A) 0.7 k/uL (0-1.0); Monocytes % (A) 7 %; Neutrophils # (A) 6.9 k/uL (1.3-7.7); Neutrophils % (A) 71 %; Platelet Count 247 k/uL (150-450); RBC 4.46 m/uL (4.30-5.90); RDW 15.4 % (11.5-15.5); WBC 9.8 k/uL (3.8-10.6)
--- NOTE | 2023-06-27 11:40 | XR ---
EXAMINATION TYPE: XR chest 2V DATE OF EXAM: 06/27/2023 COMPARISON: 07/20/22 HISTORY: Shortness of breath TECHNIQUE: Frontal and lateral views of the chest are obtained. FINDINGS: Scattered senescent parenchymal changes noted. Hyperinflation compatible with COPD. No evidence for infiltrate. No evidence for atelectasis. Heart size is stable. Mediastinal structures are stable and grossly unremarkable. No evidence for hilar prominence. Degenerative changes dorsal spine. IMPRESSION: 1. No evidence for acute pulmonary disease.
[2023-06-27 12:02] LABS: INR 1.1 (<1.2); Prothrombin Time 11.6 sec (10.0-12.5)
[2023-06-27 12:08] LABS: ALT 26 U/L (4-49); AST 24 U/L (17-59); African American GFR (CKD) >90 (>60 ml/min/1.73 sqM); Albumin 3.1 g/dL (3.5-5.0); Alkaline Phosphatase 161 U/L (38-126); Anion Gap 9 mmol/L; Blood Urea Nitrogen 29 mg/dL (9-20); Calcium 8.4 mg/dL (8.4-10.2); Carbon Dioxide 19 mmol/L (22-30); Chloride 109 mmol/L (98-107); Glucose 259 mg/dL (74-99); Non-African American GFR(CKD) 84 (>60 ml/min/1.73 sqM); Potassium 3.8 mmol/L (3.5-5.1); Sodium 137 mmol/L (137-145); Total Bilirubin 0.6 mg/dL (0.2-1.3); Total Protein 6.1 g/dL (6.3-8.2)
[2023-06-27 12:10] LABS: NT-Pro-B-Type Natriuretic Pept 15700 pg/mL
[2023-06-27 12:32] LABS: Appearance,Urine Clear (Clear); Bacteria,Urine Few /hpf; Bilirubin,Urine Negative (Negative); Blood,Urine Small (Negative); Color,Urine Yellow; Glucose,Urine (UA) 1+ (Negative); Ketones,Urine Negative (Negative); Leukocyte Esterase,Urine Negative (Negative); Mucus,Urine Rare /hpf; Nitrite,Urine Negative (Negative); Protein,Urine 3+ (Negative); RBC,Urine 2 /hpf (0-5); Specific Gravity,Urine 1.025 (1.001-1.035); WBC,Urine 2 /hpf (0-5)
[2023-06-27] MEDS ORDERED: ACETAMINOPHEN TAB 325 MG TAB PO PRN (12:41)
[2023-06-27] MEDS ORDERED: HYDROcodone/APAP 5-325MG 1 EACH TAB PO PRN (12:41)
[2023-06-27] MEDS ORDERED: NALOXONE 0.4 MG/ML 1 ML VIAL IV PRN (12:41)
[2023-06-27] MEDS ORDERED: ONDANSETRON 4 MG/2 ML VIAL IVP PRN (12:41)
[2023-06-27] MEDS ORDERED: MORPHINE SULFATE 4 MG/ML SYRINGE IV PRN (12:41)
[2023-06-27] MEDS: FUROSEMIDE 10 MG/ML 4 ML VIAL IV STA (13:09)
[2023-06-27] MEDS ORDERED: PANTOPRAZOLE 40 MG TABLET PO PRN (13:57)
[2023-06-27] MEDS ORDERED: ALBUTEROL HFA INHALER INHALATION PRN (13:57)
[2023-06-27] MEDS ORDERED: IPRATROPIUM-ALBUTEROL 3 ML NEB INHALATION PRN (13:57)
[2023-06-27] MEDS: HYDROcodone/APAP 10-325MG 1 EACH TAB PO PRN (14:22)
[2023-06-27] MEDS: CYCLOBENZAPRINE 10 MG TAB PO SCH (15:25)
[2023-06-27 16:27] LABS: Glucose,Whole Blood 239 mg/dL (70-110)
[2023-06-27] MEDS: metFORMIN 500 MG TAB PO SCH (17:42)
[2023-06-27] MEDS: GLIMEPIRIDE 4 MG TAB PO SCH (17:42)
[2023-06-27 20:05] LABS: Glucose,Whole Blood 208 mg/dL (70-110)
[2023-06-27] MEDS: SYMBICORT 160-4.5 MCG INHALER INHALATION SCH (20:11)
[2023-06-27] MEDS ORDERED: DEXTROSE 50% SYRINGE 50 ML IVP PRN ×2 (22:35)
[2023-06-27] MEDS: SACUBITRIL/VALSARTAN 49 MG-51 MG TABLET PO SCH (23:13)
[2023-06-27] MEDS: ATORVASTATIN 40 MG TAB PO SCH (23:13)
[2023-06-27] MEDS: FUROSEMIDE 10 MG/ML 4 ML VIAL IV SCH (23:14)
[2023-06-27] MEDS: prednisoLONE ACETATE 1% OPHTH DROPS 5 ML BTL LEFT EYE SCH (23:46)
[2023-06-27] MEDS: SODIUM CHLORIDE 5% OPHTH DROPS 15 ML BTL BOTH EYES SCH (23:46)
[2023-06-28] MEDS: FUROSEMIDE 40 MG TAB PO SCH (00:36)
[2023-06-28 06:11] LABS: Glucose,Whole Blood 164 mg/dL (70-110)
[2023-06-28 07:17] VITALS: BP 110/70; PULSE 80; RESP 16; TEMP 97.5
[2023-06-28] MEDS: INSULIN ASPART (NovoLOG) 100 UNIT/ML VIAL SQ SCH (07:29)
[2023-06-28] MEDS: PANTOPRAZOLE 40 MG TABLET PO SCH (07:29)
[2023-06-28] MEDS ORDERED: IPRATROPIUM 0.5 MG/2.5 ML NEBU INHALATION SCH (08:00)
[2023-06-28] MEDS ORDERED: CLOPIDOGREL 75 MG TAB PO SCH (09:00)
[2023-06-28] MEDS ORDERED: INSULIN DETEMIR (LEVEMIR) 100 UNIT/ML SYR SQ SCH (09:00)
[2023-06-28] MEDS ORDERED: METOPROLOL SUCCINATE (ER) 25 MG TAB.ER.24H PO SCH (09:00)
[2023-06-28] MEDS ORDERED: hydroCHLOROthiazide 12.5 MG CAP PO SCH (09:00)
== END 2023-06-28 08:05 | disposition left against medical advice (07) ==
LOC: EC 10:45 → 3SCARD 12:39
PROVIDERS: ADMIT Family Medicine; ATTEND Family Medicine
DX: I11.0 Hypertensive heart disease with heart failure (principal); I50.9 Heart failure, unspecified; E11.9 Type 2 diabetes mellitus without complications; I25.10 Atherosclerotic heart disease of native coronary artery without angina pectoris; I49.3 Ventricular premature depolarization; R00.0 Tachycardia, unspecified; E78.5 Hyperlipidemia, unspecified; F17.200 Nicotine dependence, unspecified, uncomplicated; Z79.02 Long term (current) use of antithrombotics/antiplatelets; Z79.84 Long term (current) use of oral hypoglycemic drugs; Z79.4 Long term (current) use of insulin; Z79.899 Other long term (current) drug therapy; Z79.51 Long term (current) use of inhaled steroids; Z88.8 Allergy status to other drugs, medicaments and biological substances; Z91.048 Other nonmedicinal substance allergy status; Z11.52 Encounter for screening for COVID-19; Z11.59 Encounter for screening for other viral diseases
CPT/HCPCS: 96376; 96374; 99285; 36415; 93005; 83880; 80053; 83605; 84484; 85025; 85610; 85730; 81001; 87636; 71046; G0378 ×2; J1940

== ENCOUNTER 2023-07-04 20:21 | Observation (INO) | payer OTHER ==
--- NOTE | 2023-07-04 21:16 | XR ---
EXAMINATION TYPE: XR chest 2V DATE OF EXAM: 07/04/2023 COMPARISON: 06/27/2023 HISTORY: Difficulty breathing TECHNIQUE: Frontal and lateral views of the chest are obtained. FINDINGS: There is mild cardiomegaly and mild pulmonary vascular congestion. There are small bilateral pleural effusions. There is no airspace consolidation. There is no pneumothorax. The osseous structures are intact. IMPRESSION: Mild acute cardiopulmonary disease most consistent with [id number] CHF.
[2023-07-04 21:19] LABS: Basophils % (A) 0 %; Eosinophils # (A) 0.2 k/uL (0-0.7); Eosinophils % (A) 2 %; HCT 41.4 % (39.0-53.0); HGB 12.9 gm/dL (13.0-17.5); Hypochromasia Slight; Lymphocytes # (A) 1.7 k/uL (1.0-4.8); Lymphocytes % (A) 17 %; MCH 27.7 pg (25.0-35.0); MCHC 31.3 g/dL (31.0-37.0); MCV 88.4 fL (80.0-100.0); Mean Platelet Volume 9.7; Monocytes # (A) 0.7 k/uL (0-1.0); Monocytes % (A) 7 %; Neutrophils # (A) 7.4 k/uL (1.3-7.7); Neutrophils % (A) 72 %; Platelet Count 258 k/uL (150-450); RBC 4.68 m/uL (4.30-5.90); RDW 15.8 % (11.5-15.5); WBC 10.2 k/uL (3.8-10.6)
[2023-07-04] MEDS: ASPIRIN 81 MG PO STA (21:20)
[2023-07-04] MEDS: PANTOPRAZOLE 40 MG/10 ML VIAL IVP STA (21:20)
[2023-07-04 21:32] LABS: Partial Thromboplastin Time 25.8 sec (22.0-30.0); Prothrombin Time 11.3 sec (10.0-12.5)
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
[2023-07-04] MEDS ORDERED: ALBUTEROL NEBULIZED 2.5 MG/3 ML INHALATION PRN (21:37)
[2023-07-04 21:38] LABS: ALT 22 U/L (4-49); AST 24 U/L (17-59); African American GFR (CKD) >90 (>60 ml/min/1.73 sqM); Albumin 3.1 g/dL (3.5-5.0); Alkaline Phosphatase 133 U/L (38-126); Anion Gap 7 mmol/L; Blood Urea Nitrogen 29 mg/dL (9-20); Carbon Dioxide 23 mmol/L (22-30); Chloride 107 mmol/L (98-107); Glucose 206 mg/dL (74-99); Magnesium 1.5 mg/dL (1.6-2.3); Non-African American GFR(CKD) 81 (>60 ml/min/1.73 sqM); Potassium 4.3 mmol/L (3.5-5.1); Sodium 137 mmol/L (137-145); Total Bilirubin 0.6 mg/dL (0.2-1.3); Total Protein 6.2 g/dL (6.3-8.2)
[2023-07-04] MEDS ORDERED: NALOXONE 0.4 MG/ML 1 ML VIAL IV PRN (21:39)
[2023-07-04 21:47] LABS: NT-Pro-B-Type Natriuretic Pept 12500 pg/mL
[2023-07-04] MEDS: MAGNESIUM OXIDE 400 MG TAB PO STA (22:11)
[2023-07-04] MEDS: FUROSEMIDE 10 MG/ML 4 ML VIAL IV SCH (22:11)
[2023-07-04] MEDS: CYCLOBENZAPRINE 10 MG TAB PO SCH (22:34)
[2023-07-04] MEDS: HYDROcodone/APAP 10-325MG 1 EACH TAB PO PRN (22:37)
[2023-07-05] MEDS: HEPARIN SODIUM,PORCINE 5,000 UNIT/ML 1 ML VIAL SQ SCH (00:08)
[2023-07-05 03:13] LABS: HCT 39.9 % (39.0-53.0); HGB 12.3 gm/dL (13.0-17.5); MCHC 30.8 g/dL (31.0-37.0); MCV 90.9 fL (80.0-100.0); RBC 4.39 m/uL (4.30-5.90); WBC 10.4 k/uL (3.8-10.6)
[2023-07-05 03:14] LABS: Basophils # (A) 0.1 k/uL (0-0.2); Basophils % (A) 1 %; Eosinophils # (A) 0.2 k/uL (0-0.7); Eosinophils % (A) 2 %; Hypochromasia Marked; Lymphocytes # (A) 2.2 k/uL (1.0-4.8); Lymphocytes % (A) 21 %; Mean Platelet Volume 9.4; Monocytes # (A) 0.7 k/uL (0-1.0); Monocytes % (A) 7 %; Neutrophils % (A) 67 %; Platelet Count 222 k/uL (150-450); RDW 15.6 % (11.5-15.5)
[2023-07-05 03:26] LABS: African American GFR (CKD) 79 (>60 ml/min/1.73 sqM); Anion Gap 6 mmol/L; Blood Urea Nitrogen 32 mg/dL (9-20); Calcium 8.8 mg/dL (8.4-10.2); Carbon Dioxide 26 mmol/L (22-30); Chloride 106 mmol/L (98-107); Glucose 228 mg/dL (74-99); Non-African American GFR(CKD) 68 (>60 ml/min/1.73 sqM); Potassium 4.3 mmol/L (3.5-5.1); Sodium 138 mmol/L (137-145)
[2023-07-05] MEDS: IPRATROPIUM-ALBUTEROL 3 ML NEB INHALATION PRN (05:06)
[2023-07-05] MEDS: IPRATROPIUM 0.5 MG/2.5 ML NEBU INHALATION SCH (08:24)
[2023-07-05] MEDS: SYMBICORT 80-4.5 MCG INHALER INHALATION SCH (08:24)
[2023-07-05] MEDS: INSULIN DETEMIR (LEVEMIR) 100 UNIT/ML SYR SQ SCH (09:19)
[2023-07-05] MEDS: SACUBITRIL/VALSARTAN 49 MG-51 MG TABLET PO SCH (09:19)
[2023-07-05] MEDS: PANTOPRAZOLE 40 MG TABLET PO SCH (09:19)
[2023-07-05] MEDS: hydroCHLOROthiazide 12.5 MG CAP PO SCH (09:20)
[2023-07-05] MEDS: CLOPIDOGREL 75 MG TAB PO SCH (09:20)
[2023-07-05] MEDS: METOPROLOL SUCCINATE (ER) 25 MG TAB.ER.24H PO SCH (09:20)
[2023-07-05] MEDS: GLIMEPIRIDE 4 MG TAB PO SCH (09:20)
[2023-07-05] MEDS: SODIUM CHLORIDE 5% OPHTH DROPS 15 ML BTL BOTH EYES SCH (10:30)
[2023-07-05] MEDS: prednisoLONE ACETATE 1% OPHTH DROPS 5 ML BTL LEFT EYE SCH (10:30)
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
[2023-07-05 16:52] LABS: Glucose,Whole Blood 267 mg/dL (70-110)
[2023-07-05 20:07] LABS: Glucose,Whole Blood 185 mg/dL (70-110)
[2023-07-05] MEDS: ATORVASTATIN 40 MG TAB PO SCH (21:49)
[2023-07-05] MEDS ORDERED: FUROSEMIDE 10 MG/ML 4 ML VIAL IV SCH (22:00)
[2023-07-06 03:35] VITALS: RESP 16
[2023-07-06 06:12] LABS: Glucose,Whole Blood 168 mg/dL (70-110)
[2023-07-06 06:55] LABS: African American GFR (CKD) 86 (>60 ml/min/1.73 sqM); Anion Gap 9 mmol/L; Blood Urea Nitrogen 34 mg/dL (9-20); Calcium 8.6 mg/dL (8.4-10.2); Carbon Dioxide 25 mmol/L (22-30); Chloride 103 mmol/L (98-107); Glucose 170 mg/dL (74-99); Non-African American GFR(CKD) 75 (>60 ml/min/1.73 sqM); Potassium 3.8 mmol/L (3.5-5.1); Sodium 137 mmol/L (137-145)
[2023-07-06] MEDS: DAPAGLIFLOZIN PROPANEDIOL 10 MG TABLET PO SCH (08:45)
[2023-07-06 08:46] VITALS: BP 111/71; TEMP 98
[2023-07-06 09:35] VITALS: PULSE 86
--- NOTE | 2023-07-06 10:38 | P.PN ---
Subjective Progress Note Date: 07/06/23 Principal diagnosis: Heart failure The patient is a 63-year-old gentleman who is known to our service from before with a CAD and prior revascularization as well as cardiomyopathy which was diagnosed recently and also lower extremities peripheral arterial disease and carotid disease and hypertension and dyslipidemia and smoking was admitted to the hospital with heart failure secondary to heart failure with reduced ejection fraction with evidence of right and left failure. July 06, 2023 The patient was seen and evaluated this morning. He remains in heart failure. He still have bilateral rhonchi and severe bilateral lower extremities edema. Currently he is on Lasix 40 mg IV 3 times daily and has been tolerating that very well with stable blood pressure and stable renal function as well. The shortness of breath has improved as well with no pain in the chest. The e xamination revealed regular rhythm with a distant heart sounds and bilateral rhonchi and bilateral lower extremities edema. Assessment Heart failure with reduced ejection fraction Recent diagnosis of severe cardiomyopathy Coronary artery disease with a prior revascularization Multiple comorbid conditions including diabetes and hypertension and dyslipidemia and smoking Plan Continue the current dose of Lasix IV Continue monitor the kidney function and electrolytes Follow-up with the patient Objective - Vital Signs Vital signs: Vital Signs Temp 98.0 F 07/06/23 08:38 Pulse 86 07/06/23 09:14 Resp 16 07/06/23 08:38 BP 111/71 07/06/23 08:38 Pulse Ox 97 07/06/23 09:02 FiO2 Intake & Output 07/05/23 07/06/23 07/06/23 18:59 06:59 18:59 Intake Total 118 250 Balance 118 250 Weight 118.388 kg 118.1 kg Intake: IV 10 Invasive Line 2 10 Oral 118 240 Other: Voiding Method Toilet - Labs CBC & Chem 7: 07/05/23 02:44 07/06/23 06:12 Labs: Abnormal Lab Results - Last 24 Hours (Table) 07/05/23 07/05/23 07/06/23 Range/Units 16:51 20:05 06:08 BUN (9-20) mg/dL Glucose (74-99) mg/dL POC Glucose (mg/dL) 267 H 185 H 168 H (70-110) mg/dL 07/06/23 Range/Units 06:12 BUN 34 H (9-20) mg/dL Glucose 170 H (74-99) mg/dL POC Glucose (mg/dL) (70-110) mg/dL
--- NOTE | 2023-07-06 13:36 | P.DS ---
Providers Date of admission: 07/04/23 21:40 Expected date of discharge: 07/06/23 Attending physician: Elsa Alcantara Consults: 07/04/23 20:53 Consult Physician Routine Consulting Provider: Jaswant Monahan Consult Reason/Comments: chf Do you want consulting provider notified?: Yes Primary care physician: Juan Jose Wyman MD Hospital Course: Discharge diagnoses; Acute on chronic systolic CHF Hypomagnesemia Hypertension Diabetes mellitus History of coronary artery disease Hospital course; patient is a 63-year-old gentleman with past medical history significant for CHF, hypertension, diabetes, coronary artery disease who presented to ER because of worsening shortness of breath. Patient was seen in the ER a week ago with similar complaint at which time his medication were adjusted and was discharged. Patient has been having worsening shortness of breath for the last few days. Shortness of breath present on rest as well as on exertion. Patient also complaining of increased swelling of feet. Patient also has been noticing weight gain. Patient complaining of orthopnea and PND. Denies any chest pain. There is no complaint of fever or chills. No complaint of nausea, vomiting abdominal pain. Because of the symptoms, patient presented to the ER Initial lab work done in the ER showed WBC 10.2, hemoglobin 12.9, platelet count 258, sodium 137, potassium 4.3, BUN 21, creatinine 0.99, glucose 206, magnesium 1.5, troponin 0.023, proBNP 77284 EKG done in the ER showed heart rate of 101, NE interval 211, QRS 97, no ST segment elevation or depression seen, no T-wave inversions seen. Chest x-ray done in the ER showed mild acute cardiopulmonary disease most concerned with mild to moderate CHF Patient admitted to internal medicine service 07/05. patient was seen by cardiology, recommended continuation of IV diuretics. Patient at this time is unwilling to stay in the hospital, patient was counseled to stay in the hospital but patient refused. Patient left AGAINST MEDICAL ADVICE. Patient Condition at Discharge: Serious Plan - Discharge Summary Discharge Rx Participant: No New Discharge Prescriptions: No Action Clopidogrel [Plavix] 75 mg PO DAILY HYDROcodone/APAP 10-325MG [[place] 10-325] 1 mg PO TID PRN PRN Reason: Pain Cyclobenzaprine [Flexeril] 10 mg PO TID hydroCHLOROthiazide 12.5 mg PO DAILY Atorvastatin [Lipitor] 40 mg PO HS Ipratropium-Albuterol Nebulize [Duoneb 0.5 mg-3 mg/3 ml Soln] 3 ml INHALATION RT-QID PRN PRN Reason: Shortness Of Breath prednisoLONE ACETATE 1% OPHTH [Pred Forte 1%] 1 drop LEFT EYE BID metFORMIN HCL [Metformin HCl] 1,000 mg PO BID Omeprazole 40 mg PO DAILY PRN PRN Reason: Heartburn Fluticasone/Umeclidin/Vilanter [Trelegy Ellipta 200-62.5-25] 1 puff INHALATION RT-DAILY Insulin Glargine [Lantus Vial] 12 unit SQ DAILY Pantoprazole Sodium [Protonix] 40 mg PO DAILY Metoprolol Succinate (ER) [Toprol Xl] 25 mg PO DAILY Glimepiride [Amaryl] 4 mg PO AC-BID Albuterol Sulfate [Albuterol Sulfate Hfa] 1 puff INHALATION RT-QID PRN PRN Reason: Shortness Of Breath Sodium Chloride 5% Ophth Soln [[place] 128] 1 drop BOTH EYES BID Furosemide [Lasix] 40 mg PO BID Sacubitril/Valsartan [Entresto 49 mg-51 mg Tablet] 1 tab PO BID Discharge Medication List Clopidogrel [Plavix] 75 mg PO DAILY 12/13/21 [History] Pantoprazole Sodium [Protonix] 40 mg PO DAILY 12/13/21 [History] Cyclobenzaprine [Flexeril] 10 mg PO TID 12/15/21 [History] HYDROcodone/APAP 10-325MG [[place] 10-325] 1 mg PO TID PRN 12/15/21 [History] Albuterol Sulfate [Albuterol Sulfate Hfa] 1 puff INHALATION RT-QID PRN 07/20/22 [History] Atorvastatin [Lipitor] 40 mg PO HS 07/20/22 [History] Glimepiride [Amaryl] 4 mg PO AC-BID 07/20/22 [History] Ipratropium-Albuterol Nebulize [Duoneb 0.5 mg-3 mg/3 ml Soln] 3 ml INHALATION RT-QID PRN 07/20/22 [History] Metoprolol Succinate (ER) [Toprol Xl] 25 mg PO DAILY 07/20/22 [History] Sodium Chloride 5% Ophth Soln [[place] 128] 1 drop BOTH EYES BID 07/20/22 [History] hydroCHLOROthiazide 12.5 mg PO DAILY 07/20/22 [History] metFORMIN HCL [Metformin HCl] 1,000 mg PO BID 07/20/22 [History] prednisoLONE ACETATE 1% OPHTH [Pred Forte 1%] 1 drop LEFT EYE BID 07/20/22 [History] Fluticasone/Umeclidin/Vilanter [Trelegy Ellipta 200-62.5-25] 1 puff INHALATION RT-DAILY 06/27/23 [History] Furosemide [Lasix] 40 mg PO BID 06/27/23 [History] Insulin Glargine [Lantus Vial] 12 unit SQ DAILY 06/27/23 [History] Omeprazole 40 mg PO DAILY PRN 06/27/23 [History] Sacubitril/Valsartan [Entresto 49 mg-51 mg Tablet] 1 tab PO BID 06/27/23 [History] Follow up Appointment(s)/Referral(s): Juan Jose Wyman MD [Primary Care Provider] - 1-2 days Discharge Disposition: LEFT AGAINST MEDICAL ADVICE
== END 2023-07-06 11:03 | disposition left against medical advice (07) ==
LOC: EC 20:21 → 3SCARD 21:40 → INTOOBSV 21:40 → 3SCARD 23:53 → UNDODISIN 07-06 11:03
PROVIDERS: ADMIT Hospitalist; ATTEND Hospitalist
DX: I11.0 Hypertensive heart disease with heart failure (principal); I50.23 Acute on chronic systolic (congestive) heart failure; E83.42 Hypomagnesemia; E11.9 Type 2 diabetes mellitus without complications; I25.10 Atherosclerotic heart disease of native coronary artery without angina pectoris; F10.20 Alcohol dependence, uncomplicated; F17.200 Nicotine dependence, unspecified, uncomplicated
CPT/HCPCS: 96376 ×3; 96372 ×3; 96374; 96375; 99285; 36415; 94640 ×4; 94760; 93005; 83880; 80053; 80048 ×2; 83735; 84484 ×2; 85025 ×2; 85610; 85730; 71046; G0378 ×3; J1644 ×2; J1940 ×3; C9113

== ENCOUNTER 2023-07-08 21:11 | Observation (INO) | payer OTHER ==
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
[2023-07-08 21:43] VITALS: RESP 18; TEMP 97.7
[2023-07-08 22:01] LABS: Basophils # (A) 0.1 k/uL (0-0.2); Basophils % (A) 1 %; Eosinophils # (A) 0.2 k/uL (0-0.7); Eosinophils % (A) 2 %; HCT 40.7 % (39.0-53.0); HGB 12.8 gm/dL (13.0-17.5); Hypochromasia Slight; Lymphocytes # (A) 1.5 k/uL (1.0-4.8); Lymphocytes % (A) 16 %; MCH 27.7 pg (25.0-35.0); MCHC 31.4 g/dL (31.0-37.0); MCV 88.4 fL (80.0-100.0); Mean Platelet Volume 9.5; Monocytes # (A) 0.6 k/uL (0-1.0); Monocytes % (A) 6 %; Neutrophils # (A) 6.6 k/uL (1.3-7.7); Neutrophils % (A) 73 %; Platelet Count 233 k/uL (150-450); RBC 4.61 m/uL (4.30-5.90); RDW 15.8 % (11.5-15.5)
[2023-07-08 22:08] LABS: Partial Thromboplastin Time 27.2 sec (22.0-30.0); Prothrombin Time 11.4 sec (10.0-12.5)
--- NOTE | 2023-07-08 22:38 | XR ---
EXAM: XR Chest, 2 Views CLINICAL HISTORY: difficulty breathing TECHNIQUE: Frontal and lateral views of the chest. COMPARISON: Chest 2 views dated 07/05/2023 FINDINGS: Lungs: No focal airspace consolidation. The pulmonary vasculature appears somewhat equalized. No radiographic evidence for florid CHF. Pleural space: No large pleural effusion or pneumothorax. Heart: The cardiac silhouette is stable in appearance and is presumed within normal limits. Mediastinum: The mediastinal contours are stable. The trachea is midline. Bones/joints: Unremarkable. No acute fracture. IMPRESSION: The pulmonary vasculature appears somewhat equalized, stable from the previous examination. Mild pulmonary vascular congestion suspected. No focal airspace consolidation. No large pleural effusion or pneumothorax.
[2023-07-09 01:03] LABS: ALT 22 U/L (4-49); AST 23 U/L (17-59); African American GFR (CKD) 88 (>60 ml/min/1.73 sqM); Albumin 3.2 g/dL (3.5-5.0); Alkaline Phosphatase 147 U/L (38-126); Anion Gap 7 mmol/L; Blood Urea Nitrogen 32 mg/dL (9-20); Calcium 8.9 mg/dL (8.4-10.2); Carbon Dioxide 24 mmol/L (22-30); Chloride 107 mmol/L (98-107); Glucose 243 mg/dL (74-99); Non-African American GFR(CKD) 76 (>60 ml/min/1.73 sqM); Potassium 3.8 mmol/L (3.5-5.1); Sodium 138 mmol/L (137-145); Total Bilirubin 0.6 mg/dL (0.2-1.3); Total Protein 6.3 g/dL (6.3-8.2)
[2023-07-09] MEDS: CYCLOBENZAPRINE 10 MG TAB PO SCH (01:07)
[2023-07-09 01:10] LABS: NT-Pro-B-Type Natriuretic Pept 10700 pg/mL
[2023-07-09] MEDS ORDERED: NALOXONE 0.4 MG/ML 1 ML VIAL IV PRN (01:46)
[2023-07-09] MEDS: FUROSEMIDE 10 MG/ML 4 ML VIAL IV SCH (03:52)
[2023-07-09] MEDS: HYDROcodone/APAP 10-325MG 1 EACH TAB PO PRN (06:52)
[2023-07-09 07:25] VITALS: BP 111/83; PULSE 69
[2023-07-09] MEDS: NICOTINE 21MG/24HR PATCH TRANSDERM SCH (09:51)
[2023-07-09] MEDS: METOPROLOL SUCCINATE (ER) 25 MG TAB.ER.24H PO SCH (09:53)
[2023-07-09] MEDS: ATORVASTATIN 80 MG TAB PO SCH (09:53)
[2023-07-09] MEDS: ASPIRIN 81 MG PO SCH (09:53)
[2023-07-09] MEDS: SACUBITRIL/VALSARTAN 24 MG-26 MG TABLET PO SCH (09:53)
[2023-07-09] MEDS: DAPAGLIFLOZIN PROPANEDIOL 10 MG TABLET PO SCH (09:53)
[2023-07-09] MEDS: CLOPIDOGREL 75 MG TAB PO SCH (09:54)
[2023-07-09 10:28] LABS: Glucose,Whole Blood 251 mg/dL (70-110)
[2023-07-09] MEDS: INSULIN DETEMIR (LEVEMIR) 100 UNIT/ML SYR SQ SCH (10:29)
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
== END 2023-07-09 12:02 | disposition left against medical advice (07) ==
LOC: EC 21:11 → INTOOBSV 07-09 01:48 → 3SCARD 07-09 01:48 → UNDODISIN 07-09 12:02
PROVIDERS: ADMIT Family Medicine; ATTEND Family Medicine
DX: I11.0 Hypertensive heart disease with heart failure (principal); I50.23 Acute on chronic systolic (congestive) heart failure; I42.9 Cardiomyopathy, unspecified; I25.10 Atherosclerotic heart disease of native coronary artery without angina pectoris; I65.29 Occlusion and stenosis of unspecified carotid artery; I08.3 Combined rheumatic disorders of mitral, aortic and tricuspid valves; E11.51 Type 2 diabetes mellitus with diabetic peripheral angiopathy without gangrene; E78.5 Hyperlipidemia, unspecified; E66.01 Morbid (severe) obesity due to excess calories; Z68.39 Body mass index [BMI] 39.0-39.9, adult; F17.200 Nicotine dependence, unspecified, uncomplicated; I25.2 Old myocardial infarction; Z53.29 Procedure and treatment not carried out because of patient's decision for other reasons; Z79.02 Long term (current) use of antithrombotics/antiplatelets; Z79.51 Long term (current) use of inhaled steroids; Z79.4 Long term (current) use of insulin; Z79.82 Long term (current) use of aspirin; Z79.84 Long term (current) use of oral hypoglycemic drugs; Z79.899 Other long term (current) drug therapy; Z88.8 Allergy status to other drugs, medicaments and biological substances; Z91.048 Other nonmedicinal substance allergy status; Z95.5 Presence of coronary angioplasty implant and graft
CPT/HCPCS: 96376; 96374; 99285; 36415; 93005; 83880; 80053; 84484 ×2; 85025; 85610; 85730; 71046; G0378; J1940

== ENCOUNTER 2023-08-06 06:11 | Day surgery (SDC) | payer OTHER ==
[2023-08-06] MEDS ORDERED: HEPARIN SODIUM,PORCINE (1 ML) 2,500 UNIT in SODIUM CHLORIDE 0.9% 250 ML IRRIGATION PRN (06:33)
[2023-08-06] MEDS ORDERED: ALPRAZolam 0.25 MG TAB PO PRN (06:33)
[2023-08-06] MEDS ORDERED: HEPARIN SODIUM,PORCINE 10,000 UNIT in SODIUM CHLORIDE 0.9% 1,000 ML IRRIGATION PRN (06:33)
[2023-08-06] MEDS ORDERED: ALPRAZolam 0.5 MG TAB PO PRN (06:33)
[2023-08-06] MEDS ORDERED: NITROGLYCERIN SL TABS 0.4 MG TAB SUBLINGUAL PRN (06:33)
[2023-08-06] MEDS: ASPIRIN 325 MG TAB PO STA (07:14)
[2023-08-06] MEDS: ATORVASTATIN 80 MG TAB PO STA (07:14)
[2023-08-06] MEDS: SODIUM CHLORIDE 0.9% 1,000 ML in EMPTY BAG 1 BAG IV SCH (07:14)
[2023-08-06 07:17] LABS: Glucose,Whole Blood 174 mg/dL (70-110)
[2023-08-06] MEDS: SODIUM CHLORIDE 0.9% 1,000 ML IV ONE (07:20)
[2023-08-06] MEDS ORDERED: HEPARIN SODIUM 1,000 UN/ML (10ML VL) ONE (07:26)
[2023-08-06] MEDS ORDERED: VERAPAMIL 2.5 MG/ML 2 ML AMP ONE (07:26)
[2023-08-06] MEDS ORDERED: LIDOCAINE 1% INJ 10MG/ML (20 ML MDV) ONE (07:26)
[2023-08-06] MEDS: MIDAZOLAM 2 MG/2 ML VIAL IVP ONE (07:39)
[2023-08-06] MEDS: LIDOCAINE 1% INJ 10MG/ML (20 ML MDV) SQ ONE (07:42)
[2023-08-06] MEDS: VERAPAMIL SYRINGE (5 MG/10 ML) INTRAARTER ONE (07:44)
[2023-08-06] MEDS: HEPARIN SODIUM 1,000 UN/ML (10ML VL) IV ONE (07:45)
[2023-08-06 07:52] VITALS: TEMP 98.6
[2023-08-06] MEDS: IOPAMIDOL-370 100ML BTL INJ ONE (08:05)
[2023-08-06] MEDS ORDERED: RX INFO: IV CONTRAST WAS GIVEN 1 EACH MISC MISCELLANE PRN (08:09)
--- NOTE | 2023-08-06 08:13 | P.PCN ---
Date of Procedure: 08/06/23 Operative Findings: CARDIAC CATHETERIZATION PERFORMING PHYSICIAN: Jaswant Monahan MD, RPVI PROCEDURE PERFORMED: 1. Selective right and left coronary angiogram 2. Ultrasound-guided access of the right radial artery INDICATION: Cardiomyopathy in this 63-year-old gentleman who is known to have CAD with prior stenting of the RCA and known disease involving the left coronary system COMPLICATION: None APPROACH: Right radial artery LEVEL OF SEDATION: Moderate with a sedation length of 25 minutes PROCEDURE DESCRIPTION: After obtaining an informed consent, the patient was brought to cardiac labor relations supervisor. Local anesthesia was performed using lidocaine subcutaneously. The right radial artery was cannulated using Seldinger technique, the guidewire passed easily, following that we advanced a 5-Australian sheath dilator assembly, the wire and dilator were removed and sheath was flushed. Following that, 2 mg of verapamil along with 5000 unit heparin were given. Selective right and left coronary angiogram using a 6-Australian JR4 and JL 3.5 catheters. Following that we did left heart catheterization using 6-Australian pigtail catheter. The procedure was completed there was no complication. SELECTIVE CORONARY ANGIOGRAM: The right coronary artery: Large-caliber vessel and a dominant vessel. The stent in the mid RCA is patent. The PLV branch of the RCA has a lesion appears to be in the range of 60% and the vessel is about 2 mm in diameter Left main: Is angiographically normal The left circumflex: Large caliber vessel nondominant vessel with mild to moderate disease with no high-grade stenosis The left anterior descending artery: Large-caliber vessel with mild disease only as well with no high-grade stenosis CONCLUSION: 1. Patent stent in the RCA. Severe disease involving the PLV branch of the RCA which is about 2 mm in diameter 2. Mild to moderate disease involving the left coronary system POSTPROCEDURE MANAGEMENT: Medical treatment
[2023-08-06] MEDS ORDERED: SODIUM CHLORIDE 0.9% 1,000 ML IV SCH (08:15)
[2023-08-06 11:36] VITALS: RESP 18
[2023-08-06 16:16] VITALS: BP 129/76; PULSE 91
== END 2023-08-06 12:31 | disposition home or self-care (01) ==
LOC: CATHCVL 06:11
PROVIDERS: ATTEND Internal Medicine Interventional Cardiology
DX: I25.10 Atherosclerotic heart disease of native coronary artery without angina pectoris (principal); I42.9 Cardiomyopathy, unspecified; I10 Essential (primary) hypertension; E78.5 Hyperlipidemia, unspecified; E11.9 Type 2 diabetes mellitus without complications; F17.210 Nicotine dependence, cigarettes, uncomplicated; Z95.5 Presence of coronary angioplasty implant and graft; I73.9 Peripheral vascular disease, unspecified; I38 Endocarditis, valve unspecified; Z79.84 Long term (current) use of oral hypoglycemic drugs; Z79.82 Long term (current) use of aspirin; Z79.899 Other long term (current) drug therapy
CPT/HCPCS: 93458; 76937; C1769 ×3; C1894; J2250; J2001; J1644; Q9967

== ENCOUNTER 2023-08-15 12:40 | Observation (INO) | payer OTHER ==
[2023-08-15 13:11] VITALS: TEMP 98.3
--- NOTE | 2023-08-15 14:05 | XR ---
EXAMINATION TYPE: XR chest 2V DATE OF EXAM: 08/15/2023 COMPARISON: 07/08/2023 HISTORY: 63 year-old male shortness of breath, difficulty breathing TECHNIQUE: AP and lateral views FINDINGS: Low lung volumes with crowded vascular markings. Heart size accentuated, likely borderline enlarged. Diffuse increased bilateral interstitial changes. Either summation artifact or underlying nodularity left mid lung. Possible trace effusion on the right. IMPRESSION: Limited by hypoventilatory changes. Possible mild CHF with pulmonary vascular congestion. Trace right effusion. Follow-up after treatment and with improved inspiratory effort to exclude a left midlung p ulmonary nodule.
[2023-08-15 14:16] LABS: INR 1.1 (<1.2); Partial Thromboplastin Time 25.9 sec (22.0-30.0); Prothrombin Time 12.2 sec (10.0-12.5)
[2023-08-15 14:18] LABS: Anisocytosis Slight; Basophils % (A) 0 %; Eosinophils # (A) 0.1 k/uL (0-0.7); Eosinophils % (A) 1 %; HCT 43.4 % (39.0-53.0); HGB 13.4 gm/dL (13.0-17.5); Hypochromasia Slight; Lymphocytes # (A) 1.6 k/uL (1.0-4.8); Lymphocytes % (A) 10 %; MCH 26.6 pg (25.0-35.0); MCHC 30.9 g/dL (31.0-37.0); MCV 86.2 fL (80.0-100.0); Mean Platelet Volume 9.6; Monocytes # (A) 0.9 k/uL (0-1.0); Monocytes % (A) 6 %; Neutrophils # (A) 13.2 k/uL (1.3-7.7); Neutrophils % (A) 83 %; Platelet Count 304 k/uL (150-450); RBC 5.04 m/uL (4.30-5.90); RDW 17.4 % (11.5-15.5)
[2023-08-15 14:30] LABS: ALT 46 U/L (4-49); African American GFR (CKD) >90 (>60 ml/min/1.73 sqM); Albumin 3.7 g/dL (3.5-5.0); Anion Gap 8 mmol/L; Blood Urea Nitrogen 46 mg/dL (9-20); Calcium 8.6 mg/dL (8.4-10.2); Carbon Dioxide 22 mmol/L (22-30); Chloride 106 mmol/L (98-107); Glucose 179 mg/dL (74-99); Non-African American GFR(CKD) 84 (>60 ml/min/1.73 sqM); Sodium 136 mmol/L (137-145); Total Bilirubin 1.3 mg/dL (0.2-1.3); Total Protein 7.3 g/dL (6.3-8.2)
[2023-08-15 14:38] LABS: AST 41 U/L (17-59)
[2023-08-15 14:39] LABS: Alkaline Phosphatase 204 U/L (38-126)
[2023-08-15 14:46] LABS: NT-Pro-B-Type Natriuretic Pept 20200 pg/mL
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
[2023-08-15] MEDS ORDERED: NALOXONE 0.4 MG/ML 1 ML VIAL IV PRN (15:24)
[2023-08-15] MEDS: FUROSEMIDE 10 MG/ML 10 ML VIAL IV STA (16:23)
[2023-08-15] MEDS: FUROSEMIDE 10 MG/ML 10 ML VIAL IV SCH (21:59)
[2023-08-15] MEDS: CYCLOBENZAPRINE 10 MG TAB PO PRN (22:00)
[2023-08-15] MEDS: HYDROcodone/APAP 10-325MG 1 EACH TAB PO PRN (22:00)
[2023-08-16 02:44] VITALS: BP 117/79; PULSE 92; RESP 16
== END 2023-08-16 06:10 | disposition left against medical advice (07) ==
LOC: EC 12:40 → 3SCARD 15:31
PROVIDERS: ADMIT Family Medicine; ATTEND Family Medicine
DX: R06.89 Other abnormalities of breathing (principal); I50.22 Chronic systolic (congestive) heart failure; I11.0 Hypertensive heart disease with heart failure; J44.9 Chronic obstructive pulmonary disease, unspecified; K21.9 Gastro-esophageal reflux disease without esophagitis; E78.5 Hyperlipidemia, unspecified; I25.2 Old myocardial infarction; M19.90 Unspecified osteoarthritis, unspecified site
CPT/HCPCS: 96376; 96365; 99285; 36415; 93005; 83880; 80053; 83605; 84484; 85025; 85610; 85730; 71046; G0378 ×2; J1940